=== PATIENT | male | born 1940 | race Caucasian/White ===

== ENCOUNTER → 2016-09-23 | Outpatient (CLI) | payer BC ==
[~2016-09-23] MED LIST: ATOR-24 PO; CALCTAB5 PO; CHOLCAP5 PO; DABI150C PO; LOSA50TA6 PO; MULT-190 PO; MULT-513 PO; TAMS0.4C59 PO; TPRSR/100 PO
[2016-09-23 10:34] LABS: CHOLESTEROL/HDL RATIO 2.6
== END | disposition home or self-care (01) ==
LOC: C.LAB1850 09:02
PROVIDERS: ATTEND Internal Medicine Cardiovascular Disease
DX: E78.00 Pure hypercholesterolemia, unspecified (principal); I10 Essential (primary) hypertension

== ENCOUNTER → 2016-10-03 | Outpatient (CLI) | payer BC | END | disposition home or self-care (01) | LOC: C.PATHSPEC 12:00 | PROVIDERS: ATTEND Ophthalmology | DX: L82.0 Inflamed seborrheic keratosis (principal) ==

== ENCOUNTER → 2017-03-08 | Outpatient (CLI) | payer BC ==
[2017-03-08 13:09] VITALS: BP 137/82; PULSE 88; TEMP 36.8; O2SAT 96
--- NOTE | 2017-03-08 15:43 | Radiation Oncology Follow-Up ---
Radiation Oncology Follow-Up Date of Visit Mar 08, 2017. Reason For Visit Annual follow-up Radiation Completion Date 08/01/13 Diagnosis (1) Prostate cancer Status: Resolved Onset Date: 02/13/2013 Location: right lobe of the prostate Histology Subtype: adenocarcinoma Stage: ll (A) Permanent Comment: Rising PSA to 4.13, clinical stage TIc Status post ultrasound-guided biopsies, biopsy stage TIIb Townsend grade 3+3 and 3+4 6 months of hormonal suppression Status post completion of radiation therapy utilizing IMRT/IGRT completed 2013 received 8040 cGy Last Edited By: Neetu Carreon on Mar 10, 2015 16:07 History of Present Illness Mr. Longoria is a 75-year-old gentleman who has been followed for a urinary symptoms. He had been on Rapaflo for over a year. His prior PSA from April 2012 was 3.07. The patient returned for routine followup with Dr. Person with a PSA from December 25, 2012. He was seen by Dr. Person on January 01, 2013. The PSA showed an increase to 4.13, up from 3.07 in the past April. His digital rectal exam showed no nodularity. However, because of the change in PSA, the recommendation was for a biopsy. The patient agreed and the biopsy was scheduled. On February 14, 2013, Dr. Person performed ultrasound-guided biopsies. A total of 14 samples were taken. The 2 biopsies of the left base revealed benign prostatic and seminal vesicle tissue with no neoplasm. Two biopsies from the left and right mid gland and left apex revealed benign prostatic tissues with no neoplasm seen. The single biopsies from the left anterior revealed benign prostatic tissue with no neoplasm. Biopsies from the right apex revealed benign prostatic tissue with focal chronic inflammation, but no neoplasm seen. Two biopsies from the right base were positive for adenocarcinoma intermediate grade, Godwin 3 + 4 involving 40% of each of the core samples. The Townsend 4 component was approximately 10%. The one biopsy from the right anterior was positive for an adenocarcinoma, Townsend grade of 3 + 3, involving 7%.. With no perineural invasion seen. Case [id number]. A bone scan was taken for staging purposes on March 01. This showed evidence of some degenerative changes in the cervical and thoracic spine but no evidence of metastatic bony disease. The patient discussed the findings of the biopsy with Dr. Person. They are scheduled to return to discuss his prostate cancer in March. We are asked to see this patient to discuss the potential treatment options. The patient ultimately made a decision to have external beam radiation therapy. He did receive hormonal suppression for 6 months. He received IMRT IGRT completed 08/01/2013. He received 8040 cGy Interim History He is been doing well over this past year from urinary standpoint. He gave an AUA score of 14. Last year he gave a score of 12. He completed expanded prostate cancer index composite for clinical practice and gave a score of 212 and urinary incontinence symptoms. He gave a score of one of 12 and urinary irritation symptoms. He gave a score of 0 of 12 bowel symptoms. He gave a score of 4 out of 12 and sexual symptoms. He gave a score of 3 of 12 and hormonal vitality symptoms. He continues on tamsulosin twice daily. He had a PSA 03/10/2016 that was 0.130. Allergies Coded Allergies: Penicillins (Verified Allergy, Unknown, SWELLING, 09/17/13) Home Medications Scheduled Atorvastatin (Lipitor), 40 MG PO DAILY Calcium (Caltrate), 600 MG PO DAILY Cholecalciferol (Vitamin D3), 5,000 UNITS PO DAILY Dabigatran Etexilate Mesylate (Pradaxa), 150 MG PO BID Losartan Potassium (Cozaar), 50 MG PO DAILY Metoprolol Succinate (Metoprolol Succinate ER), 150 MG PO DAILY Multivitamins/Minerals (Mvi With Minerals), 1 TAB PO DAILY Ocuvite Preservision (Ocuvite Preservision), 1 TAB PO BID Tamsulosin Hcl (Flomax), 0.4 MG PO BID Review of Systems Gastrointestinal: Symptoms: WNL Oral: Symptoms: No Problems Respiratory: Symptoms: SOB With Exertion Respiratory Comments: occasionally due to AFib Urinary: Symptoms: Nocturia, Frequency Comments: 3x a night at least Skin: Symptoms: No Problems Physical Exam Vital Signs Date Time Temp Pulse Resp B/P (MAP) Pulse Ox O2 Delivery O2 Flow Rate FiO2 03/08/17 13:09 36.8 88 20 137/82 96 Pain: Side: Bilateral Patient Pain Scale: 0 - 10 Initial Pain Intensity: 0.0 Fatigue: None General Appearance: no apparent distress Eyes: normal inspection, EOMI ENT: normal ENT inspection, hearing grossly normal Neck: no adenopathy, thyroid normal Respiratory/Chest: lungs clear, no respiratory distress, no accessory muscle use Cardiovascular: regular rate, rhythm, no gallop, no murmur Abdomen: non tender, soft Anal / Rectum: Normal sphincter tone. External hemorrhoids. Prostate is smooth without nodules. No rectal masses and no rectal bleeding. Extremities: no pedal edema Neurologic/Psychiatric: no motor/sensory deficits, alert, normal mood/affect Skin: warm/dry Laboratory Studies Test 03/08/17 13:29 Prostate Specific Antigen 0.094 ng/ml (0.000-4.000) Assessment & Plan Plan: A PSA was drawn today prior to examination. Continue regular follow-up with his primary care physician and Dr. Person. We discussed the tamsulosin on a twice a day basis. I stated he could try going to 1 per day to see if there is a difference in his urinary status. If he has increased symptoms he should return to twice a day. He'll take the pill after his largest meal. We discussed the side effects of tamsulosin including lightheadedness with standing as well as floppy iris syndrome. He does have some early cataracts. There is been no discussion of any surgery in the future currently. We asked him to return to our office in 1 year. He may call if he has knee questions or concerns in the interim. Total Time In Follow-Up I spent 20 minutes speaking to the patient and performing examination. I spent 15 minutes reviewing information in completing this note. Copy To Chucky Person MD, Urology; Tre Garcias Jr,D.O.
== END | disposition home or self-care (01) ==
LOC: C.ONC 13:03
PROVIDERS: ATTEND Physician Assistant Medical
DX: Z08 Encounter for follow-up examination after completed treatment for malignant neoplasm (principal); Z92.3 Personal history of irradiation; Z85.46 Personal history of malignant neoplasm of prostate

== ENCOUNTER → 2017-03-22 | Outpatient (CLI) | payer BC ==
[2017-03-22 09:52] LABS: CHOLESTEROL/HDL RATIO 3.1
== END | disposition home or self-care (01) ==
LOC: C.LAB1850 08:32
PROVIDERS: ATTEND Internal Medicine Cardiovascular Disease
DX: E78.00 Pure hypercholesterolemia, unspecified (principal)

== ENCOUNTER → 2017-08-18 | Outpatient (CLI) | payer BC ==
[2017-08-18 15:27] LABS: BLOOD UREA NITROGEN 17 mg/dl (7-18); CREATININE 1.09 mg/dl (0.60-1.40)
== END | disposition home or self-care (01) ==
LOC: C.LAB1850 13:58
PROVIDERS: ATTEND Urology
DX: C61 Malignant neoplasm of prostate (principal); R35.0 Frequency of micturition

== ENCOUNTER → 2017-09-18 | Outpatient (CLI) | payer BC | END | disposition home or self-care (01) | LOC: C.LAB1850 08:58 | PROVIDERS: ATTEND Internal Medicine Cardiovascular Disease | DX: E78.00 Pure hypercholesterolemia, unspecified (principal) ==

== ENCOUNTER → 2018-03-08 | Outpatient (CLI) | payer BC ==
[~2018-03-08] MED LIST changes: +AZIT-57 PO; -CALCTAB5 PO; +CALCTAB7 PO; -MULT-190 PO; +TAMS0.4C38 PO; -TAMS0.4C59 PO
[2018-03-08 13:21] VITALS: BP 134/85; PULSE 85; TEMP 36.6; O2SAT 96
--- NOTE | 2018-03-08 14:20 | Radiation Oncology Follow-Up ---
Radiation Oncology Follow-Up Date of Visit Mar 08, 2018. Reason For Visit annual follow up Radiation Completion Date 08/01/13 Diagnosis (1) Prostate cancer Status: Resolved Onset Date: 02/13/2013 Location: Right lobe of the prostate Histology Subtype: Adenocarcinoma Stage: ll (A) Permanent Comment: Rising PSA to 4.13, clinical stage TIc Status post ultrasound-guided biopsies, biopsy stage TIIb Crowell grade 3+3 and 3+4 6 months of hormonal suppression Status post completion of radiation therapy utilizing IMRT/IGRT completed 2013 received 8040 cGy Last Edited By: Neetu Carreon on Mar 10, 2015 16:07 History of Present Illness Mr. Longoria has been followed for a urinary symptoms. He had been on Rapaflo for over a year. His prior PSA from April 2012 was 3.07. The patient returned for routine followup with Dr. Person with a PSA from December 25, 2012. He was seen by Dr. Person on January 01, 2013. The PSA showed an increase to 4.13, up from 3.07 in the past April. His digital rectal exam showed no nodularity. However, because of the change in PSA, the recommendation was for a biopsy. The patient agreed and the biopsy was scheduled. On February 14, 2013, Dr. Person performed ultrasound-guided biopsies. A total of 14 samples were taken. The 2 biopsies of the left base revealed benign prostatic and seminal vesicle tissue with no neoplasm. Two biopsies from the left and right mid gland and left apex revealed benign prostatic tissues with no neoplasm seen. The single biopsies from the left anterior revealed benign prostatic tissue with no neoplasm. Biopsies from the right apex revealed benign prostatic tissue with focal chronic inflammation, but no neoplasm seen. Two biopsies from the right base were positive for adenocarcinoma intermediate grade, Crowell 3 + 4 involving 40% of each of the core samples. The Crowell 4 component was approximately 10%. The one biopsy from the right anterior was positive for an adenocarcinoma, Godwin grade of 3 + 3, involving 7%.. With no perineural invasion seen. Case [id number]. A bone scan was taken for staging purposes on March 01. This showed evidence of some degenerative changes in the cervical and thoracic spine but no evidence of metastatic bony disease. The patient discussed the findings of the biopsy with Dr. Person. They are scheduled to return to discuss his prostate cancer in March. We are asked to see this patient to discuss the potential treatment options. The patient ultimately made a decision to have external beam radiation therapy. He did receive hormonal suppression for 6 months. He received IMRT IGRT completed 08/01/2013. He received 8040 cGy Interim History Has been doing well over this past year. He feels his urinary status is stable. He gave an AUA score of 14. This is unchanged from last year. He completed and expanded prostate cancer index composite for clinical practice and gave a score of 2 of 12 and urinary incontinence symptoms. He gave a score of 2 of 12 and urinary irritation symptoms. He gives score 3 of 12 and bowel symptoms. He gave a score of 4 of 12 in sexual symptoms. He gives score of 5 of 12 and hormonal vitality symptoms. His total was 14 of 60. He had a PSA August 18, 2017 and that was 0.078. Allergies Coded Allergies: Penicillins (Verified Allergy, Unknown, SWELLING, 12/13/17) Home Medications Scheduled Atorvastatin (Lipitor), 40 MG PO DAILY Calcium Carbonate-Vitamin D W/ (Caltrate 600 Plus), 1 TAB PO DAILY Cholecalciferol (Vitamin D3), 5,000 UNITS PO DAILY Dabigatran Etexilate Mesylate (Pradaxa), 150 MG PO BID Losartan Potassium (Cozaar), 50 MG PO DAILY Metoprolol Succinate (Metoprolol Succinate ER), 150 MG PO DAILY Multivitamins/Minerals (Mvi With Minerals), 1 TAB PO DAILY Tamsulosin Hcl (Flomax), 0.4 MG PO BID Review of Systems Gastrointestinal: Symptoms: WNL Oral: Symptoms: No Problems Respiratory: Symptoms: SOB With Exertion Urinary: Symptoms: WNL, Nocturia Skin: Symptoms: No Problems Physical Exam Vital Signs Date Time Temp Pulse Resp B/P (MAP) Pulse Ox O2 Delivery O2 Flow Rate FiO2 03/08/18 13:21 36.6 85 20 134/85 96 Fatigue: None General Appearance: no apparent distress Eyes: normal inspection, EOMI ENT: normal ENT inspection, hearing grossly normal Neck: no adenopathy, thyroid normal Respiratory/Chest: lungs clear, no respiratory distress, no accessory muscle use Cardiovascular: regular rate, rhythm, no gallop, no murmur Abdomen: non tender, soft, no organomegaly Anal / Rectum: External hemorrhoids. Normal sphincter tone. No prostatic nodules. No rectal masses no rectal bleeding. Extremities: no pedal edema Neurologic/Psychiatric: no motor/sensory deficits, alert, normal mood/affect Skin: warm/dry Pain Management Patient Reports Pain: No Pain Location: None Patient Preferred Pain Scale: 0 - 10 Initial Pain Intensity: 0.0 Pain Management Plan He denies pain therefore requires no pain management. Laboratory Laboratory Results: were reviewed, pending Laboratory Comments: Reviewed in the interim history. Pathology Pathology Results: were reviewed, and pertinent findings noted in HPI Imaging Imaging Studies: not applicable Assessment & Plan Plan: A PSA was drawn today prior to examination. He will be notified as to results. He continues follow-up with Dr. Person. He has been taking tamsulosin twice daily on a regular basis. We discussed decreasing the dose to once a day. If he does symptoms he will go back to twice a day. He will be seeing Dr. Person in 6 months. We asked him to return to our office in 1 year. He may call if he has any questions or concerns in the interim. Total Time In Follow-Up I spent 20 minutes speaking to the patient in performing examination. I spent 15 minutes reviewing information and completing this note. [place] Copy To Chucky Person MD, Urology; Tre Garcias Jr,D.O.
== END | disposition home or self-care (01) ==
LOC: C.ONC 13:10
PROVIDERS: ATTEND Physician Assistant Medical
DX: Z08 Encounter for follow-up examination after completed treatment for malignant neoplasm (principal); Z92.3 Personal history of irradiation; Z85.46 Personal history of malignant neoplasm of prostate

== ENCOUNTER 2021-10-18 09:35 | Inpatient (IN) ==
[2021-10-18 10:08] LABS: Basophils # (auto) 0.01 K/uL (0-0.2); Basophils % (auto) 0.1 %; Eosinophils # (auto) 0.03 K/uL (0-0.5); Eosinophils % (auto) 0.4 %; Hematocrit (blood only) 47.3 % (42-52); Hemoglobin 15.7 g/dL (14.0-18.0); Immature Granulocytes # (auto) 0.02 K/uL (0.00-0.02); Immature Granulocytes % (auto) 0.3 %; Lymphocytes # (auto) 0.47 K/uL (1.2-3.4); Lymphocytes % (auto) 6.4 %; Mean Corpuscular Hemoglobin 31.2 pg (25-34); Mean Corpuscular Hgb Conc 33.2 g/dL (32-36); Mean Corpuscular Volume 93.8 fL (80-100); Mean Platelet Volume 10.3 fL (7.4-10.4); Monocytes # (auto) 0.51 K/uL (0.11-0.59); Neutrophils # (auto) 6.28 K/uL (1.4-6.5); Neutrophils % (auto) 85.8 %; Platelet Count 132 K/uL (130-400); RDW Coefficient of Variation 13.2 % (11.5-14.5); RDW Standard Deviation 45.5 fL (36.4-46.3); Red Blood Count 5.04 M/uL (4.7-6.1); White Blood Count 7.32 K/uL (4.8-10.8)
[2021-10-18] MEDS ORDERED: methylPREDNISolone 125 MG/2 ML VIAL IV STA (10:08)
[2021-10-18] MEDS ORDERED: ALBUT/IPRATROP 3MG/0.5MG NEB 3 ML VIAL NEB STA ×2 (10:08→11:12)
--- NOTE | 2021-10-18 10:10 | Emergency Department Note ---
Impression & Plan Hypoxia ADMIT ED Provider Note HPI: The patient is a 81-year-old gentleman with history of chronic diastolic heart failure, atrial fibrillation, presents the emergency department with a chief complaint of shortness of breath for the past 2 to 3 days. Patient states he is becoming more short of breath on exertion he has had a cough and some wheezing during this time. Patient denies any fevers, denies any chest pain, on arrival to the ED he is on nasal cannula oxygen as he reportedly was hypoxic in the field at 86%, he was noted to be hypoxic here in the ED at 86% on room air and was placed on 2 L nasal cannula oxygen with good improvement. On my initial assessment the patient does exhibit some moderate expiratory wheezing but he is otherwise in no acute distress. ROS: -Pulmonary: Shortness of breath *10 point review systems was conducted and is otherwise negative unless stated above *Outpatient medications and allergy history reviewed PE: General: Alert, NAD HEENT: Normocephalic, atraumatic Eyes: Extraocular eye movement is intact, no scleral erythema Pulmonary: Moderate expiratory wheezing appreciated bilaterally and throughout without crackles Cardio: Regular rate and irregular rhythm GI: Abdomen is soft, nontender : No suprapubic tenderness MSK: No evidence of trauma or malformation of the extremities, no edema Skin: No evidence of rash Neuro: Alert, no focal deficits Psychiatric: Cooperative media monitor: - An order was placed for continuous cardiac monitoring - Patient was noted to be in fibrillation rhythm with rate of 90 EKG: Rate: 91 Rhythm: Atrial fibrillation Intervals: Within normal limits ST changes: No ST elevation Time: 0942 Medical Decision Making: Patient presented to the emergency department with a chief complaint of shortness of breath, he does exhibit some moderate expiratory wheezing on arrival, admits to a distant smoking history but states he does not have a formal diagnosis of COPD. IV was established, lab work obtained, patient does have evidence of mild hypercarbia with a PCO2 of 63, mild acidosis, chest x-ray does not show any pneumonia, patient was given DuoNeb breathing treatment as well as IV Solu-Medrol. On my reassessment he states he is feeling mild improvement. Troponin is negative, EKG shows rate controlled atrial fibrillation, patient denies any chest pain. At this time given the patient's new oxygen requirement in conjunction with his ongoing but improved wheezing, I did discuss admission with the patient which she is in agreement. JENNIFER-19 testing is negative, [facility] hospitalist service is consulted for admission and the patient was admitted in improved condition. * CRITICAL CARE TIME: 35 minutes -Stabilization of hypoxia with oxygen saturations less than 90% on room air requiring supplemental oxygen for improvement, time spent at the bedside, interpretation of diagnostic studies, arrangement of admission Diagnosis: 1. Acute respiratory failure with hypercarbia and hypoxia 2. COPD exacerbation, moderate 3. Cough, dyspnea Disposition: Admission Advised outpatient follow up: - Return to the ED with any new or worsening symptoms - PCP in 2-3 Days Santiago Romero DO Emergency Medicine Past Med/Surg History Medical History (Updated 10/18/21 @ 11:36 by Ebenezer Diaz MD) Atrial fibrillation follows with Dr. Longoria BPH (benign prostatic hyperplasia) History of colon polyps Hyperlipidemia Hypertension On anticoagulant therapy Osteoarthritis Prostate cancer 2013--radiation Rectal bleeding Surgical History History of colonoscopy History of prostate biopsy malignant History of wisdom tooth extraction Family History Aunt Family history of diabetes mellitus Other No family history of adverse response to anesthesia Social History (Updated 10/18/21 @ 11:22 by Santiago Romero DO) Smoking Status: Former smoker Age Started Using Tobacco: 17; Age Quit Using Tobacco: 27; Years Smoked: 10; Number of Years Since Quit: 52; Second Hand Exposure: No; Hx Alcohol Use: Yes Alcohol type: beer Hx Substance Use: No Preferred Language: Hebrew Communication Ability: Effective Marketing Data Specialist Required: No Beliefs That Will Affect Care: None Current Living Situation: Spouse Feels Safe at Home: Yes Assistive Devices: Glasses Allergies Allergies Allergy/AdvReac Type Severity Reaction Status Date / Time Penicillins Allergy Mild SWELLING Verified 06/07/21 10:16 Home Meds Home Medications Medication Instructions Recorded Confirmed calcium carbonate 600 mg-vitamin 1 tab PO QAM 05/13/18 10/18/21 D3 20 mcg (800 unit) chewable tablet (Caltrate 600 plus D) multivitamin 1 tab PO DAILY 03/07/19 10/18/21 metoprolol succinate 100 mg 150 mg PO BID 10/18/21 10/18/21 tablet,extended release 24 hr Previous Rx's Medication Instructions Recorded atorvastatin 40 mg tablet 40 mg PO HS #90 tab 10/21/20 dabigatran etexilate 150 mg capsule 150 mg PO BID #180 cap 10/21/20 losartan 50 mg tablet 50 mg PO QAM #90 tab 10/21/20 tamsulosin 0.4 mg capsule 0.4 mg PO QPM #30 cap 11/30/20 furosemide 40 mg tablet 40 mg PO DAILY PRN #90 tab 12/31/20 Results & Data (ED) Vital Signs Vital Signs - 24 hr 10/18/21 09:42 10/18/21 09:55 10/18/21 10:00 Temperature 36.8 C Temperature Source Oral Pulse Rate 100 H 89 89 Pulse Rate from SpO2 Sensor 91 H Pulse Rhythm Regular Pulse Strength Normal Respiratory Rate 27 H 22 19 Blood Pressure 153/85 H 159/90 H 153/85 H Blood Pressure Mean 107 113 107 Blood Pressure Position Lying Pulse Oximetry 94 91 78 L Oxygen Delivery Method Nasal Cannula Nasal Cannula Nasal Cannula Oxygen Flow Rate 2 2 2 Sepsis Recent Fever Within 48 Hours No Sepsis New/Unexplained Change in Mental Status N/A Sepsis Action Taken by Nursing No Action Required 10/18/21 10:09 10/18/21 10:15 10/18/21 10:30 Temperature Temperature Source Pulse Rate 86 91 H Pulse Rate from SpO2 Sensor 92 H 98 H Pulse Rhythm Pulse Strength Respiratory Rate 27 H 21 12 Blood Pressure 149/92 H 129/77 Blood Pressure Mean 111 94 Blood Pressure Position Pulse Oximetry 94 86 L 83 L Oxygen Delivery Method Nasal Cannula Oxygen Flow Rate 24 Sepsis Recent Fever Within 48 Hours Sepsis New/Unexplained Change in Mental Status Sepsis Action Taken by Nursing 10/18/21 10:46 10/18/21 11:00 10/18/21 11:13 Temperature Temperature Source Pulse Rate 86 96 H Pulse Rate from SpO2 Sensor 89 92 H Pulse Rhythm Pulse Strength Respiratory Rate 22 26 H 26 H Blood Pressure 124/83 156/86 H Blood Pressure Mean 96 109 Blood Pressure Position Pulse Oximetry 86 L 98 92 Oxygen Delivery Method Nasal Cannula Nasal Cannula Oxygen Flow Rate 2 2 Sepsis Recent Fever Within 48 Hours Sepsis New/Unexplained Change in Mental Status Sepsis Action Taken by Nursing 10/18/21 11:15 10/18/21 11:30 Temperature Temperature Source Pulse Rate 80 88 Pulse Rate from SpO2 Sensor 86 77 Pulse Rhythm Pulse Strength Respiratory Rate Blood Pressure 144/88 H 152/107 H Blood Pressure Mean 106 122 Blood Pressure Position Pulse Oximetry 95 83 L Oxygen Delivery Method Nasal Cannula Oxygen Flow Rate 2 Sepsis Recent Fever Within 48 Hours Sepsis New/Unexplained Change in Mental Status Sepsis Action Taken by Nursing Laboratory Data Result diagrams: 10/18/21 09:50 10/18/21 09:50 Lab Results 10/18/21 10/18/21 10/18/21 Range/Units 09:50 09:50 09:50 WBC 7.32 (4.8-10.8) K/uL RBC 5.04 (4.7-6.1) M/uL Hgb 15.7 (14.0-18.0) g/dL Hct 47.3 (42-52) % MCV 93.8 (80-100) fL MCH 31.2 (25-34) pg MCHC 33.2 (32-36) g/dL RDW Std Deviation 45.5 (36.4-46.3) fL RDW Coeff of Morgan 13.2 (11.5-14.5) % Plt Count 132 (130-400) K/uL MPV 10.3 (7.4-10.4) fL Immature Gran % (Auto) 0.3 % Neut % (Auto) 85.8 % Lymph % (Auto) 6.4 % [place] % (Auto) 7.0 % Eos % (Auto) 0.4 % Baso % (Auto) 0.1 % Neut # (Auto) 6.28 (1.4-6.5) K/uL Lymph # (Auto) 0.47 L (1.2-3.4) K/uL [place] # (Auto) 0.51 (0.11-0.59) K/uL Eos # (Auto) 0.03 (0-0.5) K/uL Baso # (Auto) 0.01 (0-0.2) K/uL Immature Gran # (Auto) 0.02 (0.00-0.02) K/uL PT Cancelled INR Cancelled APTT Cancelled PTT Ratio Cancelled VBG pH (7.36-7.41) VBG pCO2 (38-50) mmHg VBG pO2 mmHg VBG HCO3 mmol/L VBG O2 Saturation % VBG Base Excess mEq/L Barometric Pressure mm/Hg Sodium 138 (136-145) mmol/L Potassium 5.1 (3.5-5.1) mmol/L Chloride 99 (98-107) mmol/L Carbon Dioxide 34 H (21-32) mmol/L Anion Gap 5 (3-11) BUN 14 (6-23) mg/dl Creatinine 0.98 (0.6-1.4) mg/dl Est Cr Clr Drug Dosing 66.3 ml/min Est GFR ( Amer) 84.6 ml/min Est GFR (Non-Af Amer) 73.0 ml/min BUN/Creatinine Ratio 14.3 (10-20) Glucose 150 H (70-99(Fasting)) mg/dl Calcium 9.1 (8.5-10.1) mg/dl Magnesium 1.8 (1.7-2.4) mg/dl Total Bilirubin 1.1 H (0.2-1.0) mg/dl AST 31 (13-39) U/L ALT 18 (7-52) U/L Alkaline Phosphatase 71 (34-104) U/L Troponin I < 0.03 (0-0.04) ng/ml Total Protein 6.6 (6.0-8.3) gm/dl Albumin 4.0 (3.4-5.0) gm/dl Globulin 2.6 (2.5-4.0) gm/dl Albumin/Globulin Ratio 1.5 (0.9-2) SARS-CoV-2 (PCR) (Negative) Influenza Type A (PCR) (Neg) Influenza Type B (PCR) (Neg) RSV (RT-PCR) (Neg) 10/18/21 10/18/21 10/18/21 Range/Units 10:18 10:25 10:58 WBC (4.8-10.8) K/uL RBC (4.7-6.1) M/uL Hgb (14.0-18.0) g/dL Hct (42-52) % MCV (80-100) fL MCH (25-34) pg MCHC (32-36) g/dL RDW Std Deviation (36.4-46.3) fL RDW Coeff of Morgan (11.5-14.5) % Plt Count (130-400) K/uL MPV (7.4-10.4) fL Immature Gran % (Auto) % Neut % (Auto) % Lymph % (Auto) % [place] % (Auto) % Eos % (Auto) % Baso % (Auto) % Neut # (Auto) (1.4-6.5) K/uL Lymph # (Auto) (1.2-3.4) K/uL [place] # (Auto) (0.11-0.59) K/uL Eos # (Auto) (0-0.5) K/uL Baso # (Auto) (0-0.2) K/uL Immature Gran # (Auto) (0.00-0.02) K/uL PT 13.1 H INR 1.2 H APTT 41.0 H PTT Ratio 1.5 VBG pH 7.34 L (7.36-7.41) VBG pCO2 63 H (38-50) mmHg VBG pO2 32 mmHg VBG HCO3 33 mmol/L VBG O2 Saturation < 60.0 % VBG Base Excess 4.7 mEq/L Barometric Pressure 731.5 mm/Hg Sodium (136-145) mmol/L Potassium (3.5-5.1) mmol/L Chloride (98-107) mmol/L Carbon Dioxide (21-32) mmol/L Anion Gap (3-11) BUN (6-23) mg/dl Creatinine (0.6-1.4) mg/dl Est Cr Clr Drug Dosing ml/min Est GFR ( Amer) ml/min Est GFR (Non-Af Amer) ml/min BUN/Creatinine Ratio (10-20) Glucose (70-99(Fasting)) mg/dl Calcium (8.5-10.1) mg/dl Magnesium (1.7-2.4) mg/dl Total Bilirubin (0.2-1.0) mg/dl AST (13-39) U/L ALT (7-52) U/L Alkaline Phosphatase (34-104) U/L Troponin I (0-0.04) ng/ml Total Protein (6.0-8.3) gm/dl Albumin (3.4-5.0) gm/dl Globulin (2.5-4.0) gm/dl Albumin/Globulin Ratio (0.9-2) SARS-CoV-2 (PCR) NEGATIVE (Negative) Influenza Type A (PCR) Negative (Neg) Influenza Type B (PCR) Negative (Neg) RSV (RT-PCR) Negative (Neg) Administered Medications Discontinued Medications Albuterol (Albut/Ipratrop 3mg/0.5mg Neb 3 Ml Vial) 3 ml NEB NOW STA; Protocol Stop: 10/18/21 10:09 Last Admin: 10/18/21 10:17 Dose: 3 ml Documented by: [id number] Albuterol (Albut/Ipratrop 3mg/0.5mg Neb 3 Ml Vial) 3 ml NEB NOW STA; Protocol Stop: 10/18/21 11:13 Last Admin: 10/18/21 11:22 Dose: 3 ml Documented by: [id number] Methylprednisolone (Methylprednisolone 125 Mg/2 Ml Vial) 125 mg IV NOW STA Stop: 10/18/21 10:09 Last Admin: 10/18/21 10:18 Dose: 125 mg Documented by: [id number] Imaging Data Radiologist's Impression: Chest X-Ray 10/18/21 09:57 XR chest 1V portable CLINICAL HISTORY: Shortness of breath. COMPARISON STUDY: Chest radiograph May 13, 2018. FINDINGS: Lung volumes are normal. Lungs are clear. There is no pneumothorax or pleural effusion. Moderate cardiomegaly is unchanged. Mediastinal contours are normal. There is no evidence for pulmonary edema. IMPRESSION: No acute cardiopulmonary findings. Cardiomegaly. ACT 112: Negative or not required by law. Electronically signed by: Navin Chen M.D. 10/18/2021 10:19 AM Discharge Plan Visit Data Chief Complaint: Shortness of Breath/Dyspnea ED Provider: Santiago Romero Discharge Problem: Hypoxia Forms Stand Alone Forms: [facility] Prescriptions Prescriptions: No Action furosemide 40 mg tablet 40 mg PO DAILY PRN (Reason: weight gain) Qty: 90 RF: 3 tamsulosin 0.4 mg capsule 0.4 mg PO QPM Qty: 30 RF: 11 multivitamin tablet 1 tab PO DAILY RF: 0 losartan 50 mg tablet 50 mg PO QAM Qty: 90 RF: 3 dabigatran etexilate 150 mg capsule 150 mg PO BID Qty: 180 RF: 3 atorvastatin 40 mg tablet 40 mg PO HS Qty: 90 RF: 3 Caltrate 600 plus D 600 mg (1,500 mg)-800 unit Tablet,Chewable 1 tab PO QAM RF: 0 metoprolol succinate 100 mg tablet extended release 24 hr 150 mg PO BID RF: 0 Referrals Referrals: Tre Garcias Jr, DO [Primary Care Provider] -
--- NOTE | 2021-10-18 10:20 | XRay Report ---
XR chest 1V portable CLINICAL HISTORY: Shortness of breath. COMPARISON STUDY: Chest radiograph May 13, 2018. FINDINGS: Lung volumes are normal. Lungs are clear. There is no pneumothorax or pleural effusion. Mod erate cardiomegaly is unchanged. Mediastinal contours are normal. There is no evidence for pulmonary edema. IMPRESSION: No acute cardiopulmonary findings. Cardiomegaly. ACT 112: Negative or not required by law. Electronically signed by: Navin Chen M.D. 10/18/2021 10:19 AM
[2021-10-18 10:36] LABS: Troponin I < 0.03 ng/ml (0-0.04)
[2021-10-18 10:42] LABS: Alanine Aminotransferase 18 U/L (7-52); Albumin Globulin Ratio 1.5 (0.9-2); Alkaline Phosphatase 71 U/L (34-104); Anion Gap 5 (3-11); Aspartate Aminotransferase 31 U/L (13-39); BUN Creatinine Ratio 14.3 (10-20); Bilirubin,Total 1.1 mg/dl (0.2-1.0); Blood Urea Nitrogen 14 mg/dl (6-23); Calcium 9.1 mg/dl (8.5-10.1); Carbon Dioxide 34 mmol/L (21-32); Chloride 99 mmol/L (98-107); Creatinine Clr Calc Pharmacy 66.3 ml/min; Est GFR (African American) 84.6 ml/min; Globulin 2.6 gm/dl (2.5-4.0); Glucose 150 mg/dl (70-99(Fasting)); Magnesium 1.8 mg/dl (1.7-2.4); Potassium 5.1 mmol/L (3.5-5.1); Sodium 138 mmol/L (136-145); Total Protein 6.6 gm/dl (6.0-8.3)
[2021-10-18 10:44] LABS: Base Excess VBG 4.7 mEq/L; HCO3 VBG 33 mmol/L; Oxygen Saturation VBG < 60.0 %; PCO2 VBG 63 mmHg (38-50); PO2 VBG 32 mmHg; pH VBG 7.34 (7.36-7.41)
--- NOTE | 2021-10-18 11:29 | History & Physical Report ---
Date of Service October 18, 2021 Assessment & Plan (1) Acute respiratory failure with hypoxia: Plan: Suspect combination of hypervolemic state and COPD exacerbation Aim O2 sats > 90% (2) COPD exacerbation: Plan: No history of this but has what sounds like chronic bronchitis therefore may just be undiagnosed He also reports mild immediate but not long lasting improvement with duonebs Significant wheezing on exam Possible recent exacerbation with post nasal drip Azithromycin 500mg PO daily for 3 days Solu-Medrol 125mg IV given in ER, continue 40mg BID Duonebs Q4HWA Fluticasone nasal spray for post nasal drip (3) Acute on chronic diastolic heart failure: Plan: Suspect his dry weight is much lower than he thinks as appears to be significantly hypervolemic and has slow progression of shortness of breath on exertion for many months. Lasix 40mg IV now then daily Repeat BMP in AM Repeat TTE - LVEF 55-60% in October 2020 (4) Permanent atrial fibrillation: Plan: Suspect mild rate increase in ER due to albuterol and missing his morning metoprolol which we will give now Monitor on telemetry Continue metoprolol succinate 150mg PO BID Continue dabigatran 150mg PO BID (5) Enlarged prostate with lower urinary tract symptoms (LUTS): Plan: Continue tamsulosin 0.4mg PO daily (6) Hypercholesterolemia: Plan: Continue atorvastatin 40mg PO daily Plan: VTE Prophylaxis - Pradaxa Diet - low Na, heart healthy, fluid restrict 1500ml Disposition - admit to med/tele Admission and Anticipated Discharge Date Admission Date: October 18, 2021 History of Present Illness Chief Complaint: Shortness of breath Primary Care Provider: Tre Garcias Jr, Brendan Longoria is a 81 year old male who presents to the ER with shortness of breath for the last 3 days getting progressively worse. He does not wear oxygen at home. Called EMS this morning due to worsening shortness of breath. He has been using his 's nebulizers with mild improvement. He has associated wheezing but no chest pain. He also notes more chronic shortness of breath on exertion progressively getting worse over the last year. For years he has also had to clear his throat in the evenings and associated post nasal drip. He reports starting on Lasix for the last 6 months (initially prescription in October last year). He reports taking this almost daily (misses doses when he travelling) although notably as not picked up a prescription since December 2020. He does not measure his home weight but also does not feel he has recently gained weight. Dry weight per cardiology note 212lb, currently 227lb. Leg swelling at baseline. He notably has chronic atrial fibrillation, anticoagulated with Pradaxa and rate controlled in the emergency room on his usual metoprolol succinate. In the ER he was hypoxic down to 86% on room air which improved to 92% on 2LPM O2. He was given Solu-medrol 125mg IV and Duoneb 3ml x2. He was referred to medicine for admission and ongoing management of COPD exacerbation. Allergies Allergy/AdvReac Type Severity Reaction Status Date / Time Penicillins Allergy Mild SWELLING Verified 06/07/21 10:16 Home Medications Medication Instructions Recorded Confirmed Type calcium carbonate 600 mg-vitamin 1 tab PO QAM 05/13/18 10/18/21 History D3 20 mcg (800 unit) chewable tablet (Caltrate 600 plus D) multivitamin 1 tab PO DAILY 03/07/19 10/18/21 History atorvastatin 40 mg tablet 40 mg PO HS #90 tab 10/21/20 10/18/21 Rx dabigatran etexilate 150 mg capsule 150 mg PO BID #180 cap 10/21/20 10/18/21 Rx losartan 50 mg tablet 50 mg PO QAM #90 tab 10/21/20 10/18/21 Rx tamsulosin 0.4 mg capsule 0.4 mg PO QPM #30 cap 11/30/20 10/18/21 Rx furosemide 40 mg tablet 40 mg PO DAILY PRN #90 tab 12/31/20 10/18/21 Rx metoprolol succinate 100 mg 150 mg PO BID 10/18/21 10/18/21 History tablet,extended release 24 hr Past Med/Surg History Medical History (Updated 10/18/21 @ 12:18 by Ebenezer Diaz MD) Atrial fibrillation follows with Dr. Longoria BPH (benign prostatic hyperplasia) History of colon polyps Hyperlipidemia Hypertension On anticoagulant therapy Osteoarthritis Prostate cancer 2013--radiation Rectal bleeding Surgical History History of colonoscopy History of prostate biopsy malignant History of wisdom tooth extraction Family History Aunt Family history of diabetes mellitus Other No family history of adverse response to anesthesia Social History (Updated 10/18/21 @ 11:22 by Santiago Romero DO) Smoking Status: Former smoker Age Started Using Tobacco: 17; Age Quit Using Tobacco: 27; Years Smoked: 10; Number of Years Since Quit: 52; Second Hand Exposure: No; Hx Alcohol Use: Yes Alcohol type: beer Hx Substance Use: No Preferred Language: Arabic Communication Ability: Effective Booking Clerk Required: No Beliefs That Will Affect Care: None Current Living Situation: Spouse Feels Safe at Home: Yes Assistive Devices: Glasses Review of Systems Review of Systems: All systems reviewed & are unremarkable except as noted in HPI & below Physical Exam Constitutional: WD/WN, vitals as above no acute distress Eyes: PERRL, conjunctivae normal, anicteric sclerae Neck: trachea midline, no thyromegaly Respiratory: + respiratory distress, + retractions, + uses accessory muscles and able to speak in complete sentences Auscultation: + wheezes (posteriorly on expiration); no diminished lung sounds, no crackles, no rales and no rhonchi Cardiovascular: Rate/Rhythm: + tachycardic and + irregularly irregular Heart Sounds: no murmur Vessels: + JVD Extremities: normal capillary refill and + pedal edema (2+ bilaterally equal); no calf tenderness Gastrointestinal (Abdomen): Inspection/Auscultation: normal bowel sounds Percussion/Palpation: abdomen soft; abdomen nontender, no guarding and abdomen not rigid Musculoskeletal: no cyanosis or clubbing, extremities motor strength 5/5 Skin: no rashes, warm and dry Neurologic: moves all extremities and awake; not confused Psychiatric: A+Ox3, euthymic affect Results & Data Results & Data ([facility]) Vital Signs (Past 12 Hours) Vital Signs Temp Pulse Resp BP Pulse Ox 10/18/21 11:13 26 H 92 10/18/21 10:46 86 22 124/83 86 L 10/18/21 10:30 91 H 12 129/77 83 L 10/18/21 10:15 86 21 149/92 H 86 L 10/18/21 10:09 27 H 94 10/18/21 10:00 89 19 153/85 H 78 L 10/18/21 09:55 89 22 159/90 H 91 10/18/21 09:42 36.8 C 100 H 27 H 153/85 H 94 Laboratory Results Abnormal lab results 10/18/21 10/18/21 10/18/21 Range/Units 09:50 09:50 10:25 Lymph # (Auto) 0.47 L (1.2-3.4) K/uL VBG pH 7.34 L (7.36-7.41) VBG pCO2 63 H (38-50) mmHg Carbon Dioxide 34 H (21-32) mmol/L Glucose 150 H (70-99(Fasting)) mg/dl Total Bilirubin 1.1 H (0.2-1.0) mg/dl Diagnostic Findings XR chest 1V portable CLINICAL HISTORY: Shortness of breath. COMPARISON STUDY: Chest radiograph May 13, 2018. FINDINGS: Lung volumes are normal. Lungs are clear. There is no pneumothorax or pleural effusion. Moderate cardiomegaly is unchanged. Mediastinal contours are normal. There is no evidence for pulmonary edema. IMPRESSION: No acute cardiopulmonary findings. Cardiomegaly. Medications Administered ER Medications Given: Solu-Medrol 125mg IV Duoneb 3ml x2 ECG Indication: SOB/dyspnea Rate (beats per minute): 91 Rhythm: atrial fibrillation Findings: no ST depression (computer over read due to wandering baseline noted) Comparison ECG Date: from (December 13, 2017) Change: no significant change Code Status & VTE Plan Code Status All treatment outside of a cardiac arrest VTE Prophylaxis Plan VTE Prophylaxis will be ordered: Yes PG Care Time/CCT Total # of Minutes Spent Total Time Spent with Patient: Total time spent is greater than 50% in coordination of care (as documented) at patient's floor/unit and/or counseling patient: Coding Level of Care Code 46200 Initial Inpt Care Lvl 3 Diagnoses COPD exacerbation J44.1 Acute on chronic diastolic heart failure I50.33 Acute respiratory failure with hypoxia J96.01 Permanent atrial fibrillation I48.21 Enlarged prostate with lower urinary tract symptoms (LUTS) N40.1 Hypercholesterolemia E78.00
[2021-10-18 11:42] LABS: INR 1.2 (0.9-1.1); Partial Thromboplastin Ratio 1.5; Prothrombin Time 13.1 Seconds (9.0-12.0)
[2021-10-18 11:43] LABS: Influenza A virus by PCR Negative (Neg); Influenza B virus by PCR Negative (Neg); RSV by PCR Negative (Neg); SARS CoV2 RNA(COVID-19) InHosp NEGATIVE (Negative)
[2021-10-18] MEDS ORDERED: FUROSEMIDE 40 MG/4 ML VIAL IV STA (11:50)
[2021-10-18] MEDS ORDERED: LOSARTAN POTASSIUM 50 MG TAB PO STA (11:55)
[2021-10-18] MEDS ORDERED: METOPROLOL SUCC 50MG EXT REL TAB PO STA (12:04)
[2021-10-18] MEDS ORDERED: AZITHROMYCIN 250 MG TAB PO STA (12:08)
[2021-10-18] MEDS ORDERED: DABIGATRAN ETEXILATE 75 MG CAP PO STA (12:09)
[2021-10-18] MEDS ORDERED: ACETAMINOPHEN 325 MG TAB PO PRN (14:35)
[2021-10-18] MEDS: ALBUT/IPRATROP 3MG/0.5MG NEB 3 ML VIAL NEB SCH ×3 (15:55→23:09)
--- NOTE | 2021-10-18 19:29 | XCELERA ---
[id number]
[2021-10-18] MEDS: ATORVASTATIN 40 MG TAB PO SCH (20:32)
[2021-10-18] MEDS: TAMSULOSIN HCL 0.4 MG CAP PO SCH (20:32)
[2021-10-18] MEDS: DABIGATRAN ETEXILATE 75 MG CAP PO SCH (20:32)
[2021-10-18] MEDS: FLUTICASONE PROPIONATE NA SPR 16 GM BTL SCH (20:37)
[2021-10-18] MEDS: methylPREDNISolone 40 MG in SYRINGE 0 ML IV SCH (20:37)
[2021-10-18] MEDS: METOPROLOL SUCC 50MG EXT REL TAB PO SCH (20:45)
[2021-10-19] MEDS: ALBUT/IPRATROP 3MG/0.5MG NEB 3 ML VIAL NEB SCH ×3 (02:28→11:30)
--- NOTE | 2021-10-19 06:59 | Electrocardiogram Report ---
Test Reason : Blood Pressure : / mmHG Vent. Rate : 091 BPM Atrial Rate : 078 BPM P-R Int : 000 ms QRS Dur : 086 ms QT Int : 360 ms P-R-T Axes : 000 070 012 degrees QTc Int : 442 ms Poor data quality, interpretation may be adversely affected Atrial fibrillation Anterior infarct , age undetermined Abnormal ECG When compared with ECG of 13-MAY-2018 12:18, Anterior infarct is now Present T wave amplitude has decreased in Anterior leads Confirmed by Jlues Malone ([id number]) on 10/19/2021 6:59:14 AM Referred By: REFERRED SELF Confirmed By:Jules Malone
[2021-10-19 07:03] LABS: Basophils # (auto) 0.01 K/uL (0-0.2); Basophils % (auto) 0.1 %; Hematocrit (blood only) 45.2 % (42-52); Hemoglobin 15.3 g/dL (14.0-18.0); Immature Granulocytes # (auto) 0.02 K/uL (0.00-0.02); Immature Granulocytes % (auto) 0.2 %; Lymphocytes % (auto) 3.8 %; Mean Corpuscular Hemoglobin 31.7 pg (25-34); Mean Corpuscular Hgb Conc 33.8 g/dL (32-36); Mean Corpuscular Volume 93.6 fL (80-100); Mean Platelet Volume 10.2 fL (7.4-10.4); Monocytes # (auto) 0.47 K/uL (0.11-0.59); Monocytes % (auto) 3.6 %; Neutrophils # (auto) 12.07 K/uL (1.4-6.5); Neutrophils % (auto) 92.3 %; Platelet Count 144 K/uL (130-400); RDW Coefficient of Variation 13.3 % (11.5-14.5); Red Blood Count 4.83 M/uL (4.7-6.1); White Blood Count 13.07 K/uL (4.8-10.8)
[2021-10-19 07:29] LABS: BUN Creatinine Ratio 22.8 (10-20); Calcium 9.3 mg/dl (8.5-10.1); Creatinine Clr Calc Pharmacy 63.1 ml/min; Est GFR (African American) 81.6 ml/min; Est GFR (Non-African American) 70.4 ml/min; Potassium 4.8 mmol/L (3.5-5.1)
[2021-10-19] MEDS: MULTIVITAMIN TAB PO SCH (07:38)
[2021-10-19] MEDS: CALCIUM 600MG + VIT D 400 IU TAB PO SCH (07:38)
[2021-10-19] MEDS: LOSARTAN POTASSIUM 50 MG TAB PO SCH (07:38)
[2021-10-19] MEDS: METOPROLOL SUCC 50MG EXT REL TAB PO SCH ×2 (07:38→21:12)
[2021-10-19] MEDS: DABIGATRAN ETEXILATE 75 MG CAP PO SCH ×2 (07:38→21:11)
[2021-10-19] MEDS: methylPREDNISolone 40 MG in SYRINGE 0 ML IV SCH (07:39)
[2021-10-19] MEDS: FLUTICASONE PROPIONATE NA SPR 16 GM BTL SCH ×2 (07:39→21:10)
[2021-10-19] MEDS: FUROSEMIDE 40 MG/4 ML VIAL IV SCH ×2 (07:39→17:24)
[2021-10-19] MEDS ORDERED: FUROSEMIDE 40 MG/4 ML VIAL IV SCH (09:00)
[2021-10-19] MEDS ORDERED: AZITHROMYCIN 250 MG TAB PO SCH (09:00)
--- NOTE | 2021-10-19 12:05 | Hospitalist Progress Note ---
Date of Service October 19, 2021 Assessment & Plan (1) Acute on chronic diastolic heart failure: Plan: Due to change in diet as his has gotten sicker, and he is cooking more and using more pre-packaged foods. EF 60 - 65% this admission. - Continue Lasix 40mg IV BID - Monitor weights and I&Os -> Bedside scale being used and floor not tracking I&Os. Will speak with RN and get better assessments. - CHF PA consult (2) COPD exacerbation: Plan: Questionable. No official diagnosis of COPD. Possible recent exacerbation with post nasal drip. - Stop azithromycin & steroids - Change Duonebs to PRN - Fluticasone nasal spray for post nasal drip (3) Acute respiratory failure with hypoxia: Plan: Suspect combination of hypervolemic state and COPD exacerbation - Aim O2 sats > 90% (4) Permanent atrial fibrillation: Plan: Suspect mild rate increase in ER due to albuterol and missing his morning metoprolol. - Continue metoprolol succinate 150mg PO BID - Continue dabigatran 150mg PO BID (5) Enlarged prostate with lower urinary tract symptoms (LUTS): Plan: No LUTS presently. - Continue tamsulosin 0.4mg PO daily (6) Hypercholesterolemia: Plan: - Continue atorvastatin 40mg PO daily Admission and Anticipated Discharge Date Admission Date: October 18, 2021 Subjective Breathing much better at this time. Feels legs are still slightly swollen. Reports no fevers/chills, chest pain, abdominal pain, nausea, or vomiting. Physical Exam Constitutional: WD/WN, vitals as above Eyes: EOM intact bilaterally; no conjunctival abnormality ENMT: external ear and nose normal, oropharynx normal Neck: trachea midline, no thyromegaly normal visual inspection Respiratory: normal respiratory effort, lungs clear to auscultation no respiratory distress Cardiovascular: Rate/Rhythm: regular rate and + irregularly irregular Heart Sounds: normal S1 and normal S2 Extremities: + edema (Mild) Gastrointestinal (Abdomen): Inspection/Auscultation: abdomen normal to inspection; abdomen not distended Musculoskeletal: no cyanosis or clubbing, extremities motor strength 5/5 Skin: no rashes, warm and dry Neurologic: moves all extremities and awake Psychiatric: Orientation: alert, oriented to person and cooperative Results & Data Results & Data ([facility]) Vital Signs (Past 12 Hours) Vital Signs Temp Pulse Pulse Resp BP Pulse Ox 10/19/21 11:30 83 18 96 10/19/21 11:14 36.6 C 97 H 18 155/76 H 92 10/19/21 07:26 85 18 91 10/19/21 06:38 36.4 C L 86 20 135/84 94 10/19/21 03:43 36.9 C 81 20 132/80 97 10/19/21 02:28 76 20 93 10/19/21 00:37 91 H PG Care Time/CCT Total # of Minutes Spent Total Time Spent with Patient: Total time spent is greater than 50% in coordination of care (as documented) at patient's floor/unit and/or counseling patient: Coding Level of Care Code 64386 Subseq Hosp Care Lvl 3 Diagnoses Acute respiratory failure with hypoxia J96.01 COPD exacerbation J44.1 Acute on chronic diastolic heart failure I50.33 Permanent atrial fibrillation I48.21 Enlarged prostate with lower urinary tract symptoms (LUTS) N40.1 Hypercholesterolemia E78.00
[2021-10-19] MEDS ORDERED: ALBUT/IPRATROP 3MG/0.5MG NEB 3 ML VIAL NEB PRN (12:06)
--- NOTE | 2021-10-19 14:05 | Heart Failure Consultation ---
Date of Consultation October 19, 2021 Assessment & Plan (1) Acute on chronic heart failure with preserved ejection fraction (HFpEF): (2) Permanent atrial fibrillation: HFpEF: NYHA Class III symptoms on admission. Patient was hypervolemic on exam with heart failure symptoms. Etiology likely diuretic nonadherence in combination with dietary indiscretion. EF remains preserved. He has responded favorably to diuresis. I&Os are likely inaccurate but he is clinically improving. Educated patient on importance of capturing urine output. New order placed for daily standing weights. Outpatient dry weight noted to be 212 lb. He continues on supplemental O2 but with stable saturations. Hopefully will be able to wean soon. Continue Lasix 40 mg IV BID. Kidney function and electrolytes are stable. Anticipate discharge home tomorrow so he can resume caring for his at home. Suspect with improved compliance he will do well on his previous home dose. Will also require low sodium diet education. We discussed the heart failure program and he is agreeable to ongoing participation. Atrial fibrillation: Asymptomatic. Rate well controlled. Continue current regimen. Continue anticoagulation. Disposition: Anticipate close outpatient follow up. Scheduled for 10/25 at 10:30. Today's plan of care was discussed with Dr. Person and Dr. Longoria. Will continue to follow during hospitalization. History of Present Illness Attending Physician: Charly Person MD History of Present Illness Patient is a 81 year old with with history of chronic HFpEF, atrial fibrillation, hypertension, and hypercholesterolemia. Dr. Longoria is his primary marketing researcher. Recent cardiac studies: 1. 10/18/21 Echo: Mild concentric LVH. LV systolic function normal, EF 60-65%. Severe biatrial dilation. RVSP elevated 40-40 mmHg. Patient presented to the ED on 10/18/21 with shortness of breath, hypoxia, cough/wheezing. He was placed on supplemental O2. He was treated initially with Duonebs and steroids with good response. Troponin negative. EKG with rate controlled atrial fibrillation. COVID 19 negative. CXR without pleural effusion or pulmonary edema. Echo with normal EF and severe biatrial dilation. He was initiated on Lasix 40 mg IV on admission. Patient was evaluated this afternoon with the heart failure program. He reports feeling poorly several days prior to admission. He admits to nonadherence with his diuretic when he has social engagements. This is often several times per week. He also admits to more dietary indiscretion recently. His is having health issues and he has been eating more take out and processed foods. He reports he's feeling improved today. His breathing is better and his edema is improving. He is still on O2 2L today. He sleeps with his head elevated. He denies further coughing or wheezing. He denies chest pain, palpitations, or hematuria. I&Os likely inaccurate. Weight is down from admission. Allergies Allergy/AdvReac Type Severity Reaction Status Date / Time Penicillins Allergy Mild SWELLING Verified 06/07/21 10:16 Home Medications Medication Instructions Recorded Confirmed Type calcium carbonate 600 mg-vitamin 1 tab PO QAM 05/13/18 10/18/21 History D3 20 mcg (800 unit) chewable tablet (Caltrate 600 plus D) multivitamin 1 tab PO DAILY 03/07/19 10/18/21 History atorvastatin 40 mg tablet 40 mg PO HS #90 tab 10/21/20 10/18/21 Rx dabigatran etexilate 150 mg capsule 150 mg PO BID #180 cap 10/21/20 10/18/21 Rx losartan 50 mg tablet 50 mg PO QAM #90 tab 10/21/20 10/18/21 Rx tamsulosin 0.4 mg capsule 0.4 mg PO QPM #30 cap 11/30/20 10/18/21 Rx furosemide 40 mg tablet 40 mg PO DAILY PRN #90 tab 12/31/20 10/18/21 Rx metoprolol succinate 100 mg 150 mg PO BID 10/18/21 10/18/21 History tablet,extended release 24 hr Patient History Medical History (Updated 10/19/21 @ 15:07 by Maryann Garcia PA-C) Atrial fibrillation follows with Dr. Longoria BPH (benign prostatic hyperplasia) History of colon polyps Hyperlipidemia Hypertension On anticoagulant therapy Osteoarthritis Prostate cancer 2013--radiation Rectal bleeding Surgical History History of colonoscopy History of prostate biopsy malignant History of wisdom tooth extraction Family History Aunt Family history of diabetes mellitus Other No family history of adverse response to anesthesia Social History (Updated 10/18/21 @ 11:22 by Santiago Romero DO) Smoking Status: Never smoker Age Started Using Tobacco: 17; Age Quit Using Tobacco: 27; Years Smoked: 10; Number of Years Since Quit: 52; Second Hand Exposure: No; Hx Alcohol Use: No Hx Substance Use: No Preferred Language: Serbian Communication Ability: Effective Geophysical E Logger Required: No Beliefs That Will Affect Care: None Current Living Situation: Spouse Feels Safe at Home: Yes Assistive Devices: Glasses Physical Exam Physical Exam: Constitutional: Alert, oriented, in no acute distress. Sup plemental O2 via NC HEENT: Head is atraumatic and normocephalic. EOMs intact. Sclera anicteric. Face is symmetric. No perioral cyanosis. Mucous membranes moist. Neck: Supple, + JVD correction to the mandible at 45 degrees. Pulmonary: Normal respiratory effort, clear to auscultation bilaterally Cardiac: Irregular rate and rhythm. Normal S1 and S2, no gallops, no rubs, no murmurs Extremities: 2+ radial pulses bilaterally. 2+ posterior tibialis pulses bilaterally. 1+ pitting edema. No cyanosis or clubbing. Abdomen: Normal bowel sounds, soft, non-tender, no abdominal mass palpated Skin: Normal skin color, turgor, and pigmentation, no rash, no skin lesions Neurological: Patient is awake, alert, and oriented. Pleasant and cooperative. Answers questions appropriately. Speech is clear. Normal movement in all 4 extremities. Results & Data ([facility]) Vital Signs (Past 12 Hours) Vital Signs Temp Pulse Pulse Resp BP Pulse Ox 10/19/21 11:30 83 18 96 10/19/21 11:14 97.9 F 97 H 18 155/76 H 92 10/19/21 07:26 85 18 91 10/19/21 07:00 88 10/19/21 06:38 97.5 F L 86 20 135/84 94 10/19/21 03:43 98.4 F 81 20 132/80 97 10/19/21 02:28 76 20 93 Heart Failure Data/Metrics Heart Failure Type: HFpEF (EF > 50%) Ejection Fraction: 60-65% Evidenced Based Beta Xiao Therapy Beta Xiao Therapy: Not Indicated CHELSEA/ARB/ARNI Therapy CHELSEA/ARB/ARNI Therapy: Not Indicated Aldosterone Antagonist Therapy Aldosterone Antagonist Therapy: Not Indicated Coding Level of Care Code 60762 Initial Inpt Care Lvl 3 Diagnoses Acute on chronic heart failure with preserved ejection fraction (HFpEF) I50.33 Permanent atrial fibrillation I48.21
[2021-10-19] MEDS: ATORVASTATIN 40 MG TAB PO SCH (21:11)
[2021-10-19] MEDS: TAMSULOSIN HCL 0.4 MG CAP PO SCH (21:12)
[2021-10-20 06:07] LABS: Hematocrit (blood only) 46.4 % (42-52); Hemoglobin 15.6 g/dL (14.0-18.0); Mean Corpuscular Hemoglobin 31.6 pg (25-34); Mean Corpuscular Hgb Conc 33.6 g/dL (32-36); Mean Corpuscular Volume 93.9 fL (80-100); Mean Platelet Volume 10.3 fL (7.4-10.4); Platelet Count 155 K/uL (130-400); RDW Coefficient of Variation 13.5 % (11.5-14.5); RDW Standard Deviation 46.4 fL (36.4-46.3); Red Blood Count 4.94 M/uL (4.7-6.1); White Blood Count 15.37 K/uL (4.8-10.8)
[2021-10-20 06:25] LABS: BUN Creatinine Ratio 29.5 (10-20); Calcium 9.2 mg/dl (8.5-10.1); Creatinine Clr Calc Pharmacy 52.2 ml/min; Potassium 4.5 mmol/L (3.5-5.1)
[2021-10-20] MEDS: DABIGATRAN ETEXILATE 75 MG CAP PO SCH (08:20)
[2021-10-20] MEDS: CALCIUM 600MG + VIT D 400 IU TAB PO SCH (08:20)
[2021-10-20] MEDS: FLUTICASONE PROPIONATE NA SPR 16 GM BTL SCH (08:20)
[2021-10-20] MEDS: FUROSEMIDE 40 MG/4 ML VIAL IV SCH (08:21)
[2021-10-20] MEDS: LOSARTAN POTASSIUM 50 MG TAB PO SCH (08:21)
[2021-10-20] MEDS: MULTIVITAMIN TAB PO SCH (08:22)
[2021-10-20] MEDS: METOPROLOL SUCC 50MG EXT REL TAB PO SCH (08:22)
--- NOTE | 2021-10-20 10:34 | XRay Report ---
XR chest 2V PA/lateral CLINICAL HISTORY: Hypoxemia, leukocytosis TECHNIQUE: AP and lateral radiographs of the chest was obtained. Comparison: Comparison is made to chest radiographs 10/18/2028 2 FINDINGS: No lines and tubes are seen. Cardiomegaly is noted. A calcified aortic arch is noted. The lungs are c lear. No evidence of pleural effusion or pneumothorax. IMPRESSION: No acute chest disease. Cardiomegaly is noted. ACT 112: Negative or not required by law. Electronically signed by: Chandu Mijares M.D. 10/20/2021 10:33 AM
--- NOTE | 2021-10-20 11:32 | Heart Failure Progress Note ---
Date of Service October 20, 2021 Assessment & Plan (1) Acute on chronic heart failure with preserved ejection fraction (HFpEF): (2) Permanent atrial fibrillation: Plan: HFpEF: NYHA Class III symptoms on admission. Patient was hypervolemic on exam with heart failure symptoms. Etiology likely diuretic nonadherence in combination with dietary indiscretion. EF remains preserved. He has responded favorably to diuresis. I&Os are likely inaccurate but he is clinically impr oving. Outpatient dry weight noted to be 212 lb. He is 211 lb today. He continues on supplemental O2 but with stable saturations. Planning for 2 step on discharge. BUN bumped slightly this am. Anticipate discharge home today so he can resume caring for his at home. Suspect with improved compliance he will do well on his previous home dose- Lasix 40 mg daily. Plan to repeat labs Monday before his follow up appt. Will also require low sodium diet education. We discussed the heart failure program and he is agreeable to ongoing participation. Atrial fibrillation: Asymptomatic. Rate well controlled. Continue current regimen. Continue anticoagulation. Disposition: Anticipate close outpatient follow up. Scheduled for 10/25 at 10:30. Today's plan of care was discussed with Dr. Person. Admission and Anticipated Discharge Date Admission Date: October 18, 2021 Subjective Patient reports he's not feeling as well as he expected. He remains on supplemental O2. He did ambulate in the hallway yesterday without but required O2. He denies any significant coughing or wheezing. He denies chest pain or palpitations. BNP 162. CXR today is clear. Standing weight this am 211 lb which appears to be lower than his typical baseline per the chart. Physical Exam Physical Exam: Constitutional: Alert, oriented, in no acute distress. Supplemental O2 via NC HEENT: Head is atraumatic and normocephalic. EOMs intact. Sclera anicteric. Face is symmetric. No perioral cyanosis. Mucous membranes moist. Neck: Supple, + JVD just above the clavicle. Pulmonary: Normal respiratory effort, clear to auscultation bilaterally Cardiac: Irregular rate and rhythm. Normal S1 and S2, no gallops, no rubs, no murmurs Extremities: 2+ radial pulses bilaterally. 2+ posterior tibialis pulses bilaterally. Trace + pitting edema. No cyanosis or clubbing. Abdomen: Normal bowel sounds, soft, non-tender, no abdominal mass palpated Skin: Normal skin color, turgor, and pigmentation, no rash, no skin lesions Neurological: Patient is awake, alert, and oriented. Pleasant and cooperative. Answers questions appropriately. Speech is clear. Normal movement in all 4 extremities. Results & Data ([facility]) Vital Signs (Past 12 Hours) Vital Signs Temp Pulse Pulse Resp BP BP Pulse Ox 10/20/21 11:21 97.5 F L 80 22 151/87 H 94 10/20/21 07:51 97.3 F L 78 18 150/87 H 96 10/20/21 06:15 80 10/20/21 04:15 97.5 F L 87 18 137/93 91 10/20/21 01:10 88 PG Care Time/CCT Total # of Minutes Spent Total Time Spent with Patient: Total time spent is greater than 50% in coordination of care (as documented) at patient's floor/unit and/or counseling patient: Heart Failure Data/Metrics Heart Failure Type: HFpEF (EF > 50%) Ejection Fraction: 60-65% Evidenced Based Beta Xiao Therapy Beta Xiao Therapy: Not Indicated CHELSEA/ARB/ARNI Therapy CHELSEA/ARB/ARNI Therapy: Not Indicated Aldosterone Antagonist Therapy Aldosterone Antagonist Therapy: Not Indicated Coding Level of Care Code 95318 Subseq Hosp Care Lvl 3 Diagnoses Acute on chronic heart failure with preserved ejection fraction (HFpEF) I50.33 Permanent atrial fibrillation I48.21
--- NOTE | 2021-10-20 16:16 | Discharge Summary ---
Date of Service October 20, 2021 Admission HPI Per Admitting Provider Brendan Longoria is a 81 year old male who presents to the ER with shortness of breath for the last 3 days getting progressively worse. He does not wear oxygen at home. Called EMS this morning due to worsening shortness of breath. He has been using his 's nebulizers with mild improvement. He has associated wheezing but no chest pain. He also notes more chronic shortness of breath on exertion progressively getting worse over the last year. For years he has also had to clear his throat in the evenings and associated post nasal drip. He reports starting on Lasix for the last 6 months (initially prescription in October last ). He reports taking this almost daily (misses doses when he travelling) although notably as not picked up a prescription since December 2020. He does not measure his home weight but also does not feel he has recently gained weight. Dry weight per cardiology note 212lb, currently 227lb. Leg swelling at baseline. He notably has chronic atrial fibrillation, anticoagulated with Pradaxa and rate controlled in the emergency room on his usual metoprolol succinate. In the ER he was hypoxic down to 86% on room air which improved to 92% on 2LPM O2. He was given Solu-medrol 125mg IV and Duoneb 3ml x2. He was referred to medicine for admission and ongoing management of COPD exacerbation. Principal Diagnosis Acute on chronic diastolic heart failure due to dietary changes Discharge Exam Constitutional WD/WN, vitals as above Eyes EOM intact bilaterally; no conjunctival abnormality ENMT external ear and nose normal, oropharynx normal Neck trachea midline, no thyromegaly normal visual inspection Respiratory normal respiratory effort, lungs clear to auscultation no respiratory distress Cardiovascular Rate/Rhythm: regular rate and + irregularly irregular Heart Sounds: normal S1 and normal S2 Extremities: + edema (Mild) Gastrointestinal (Abdomen) Inspection/Auscultation: abdomen normal to inspection; abdomen not distended Musculoskeletal no cyanosis or clubbing, extremities motor strength 5/5 Skin no rashes, warm and dry Neurologic moves all extremities and awake Psychiatric Orientation: alert, oriented to person and cooperative Discharge Data Allergies Allergy/AdvReac Type Severity Reaction Status Date / Time Penicillins Allergy Mild SWELLING Verified 06/07/21 10:16 Consultations 10/18/21 11:32 ED Decision to Admit Stat 10/18/21 14:35 [facility] CHF Program Referral Routine Hospital Course (1) Acute on chronic diastolic heart failure: Due to change in diet as his has gotten sicker, and he is cooking more and using more pre-packaged foods. EF 60 - 65% this admission. - Continued Lasix 40mg IV BID while inpatient. - Monitor weights and I&Os -> Bedside scale being used and floor not tracking I&Os. Will speak with RN and get better assessments. - CHF PA consulted -> By discharge, he was down to 211 lbs. This seemed to be near his dry weight. He still required O2, but felt he had to get home to help care for his . Given his general stability, this was deemed acceptable by myself and HF PA. - Discharged on Lasix 40 mg PO daily. Instructed to monitor weights and call Eloise Garcia with any changes. Will see her in clinic next week. (2) COPD exacerbation: Central to be less likely by discharge. No official diagnosis of COPD. - Stopped azithromycin & steroids - Change Duonebs to PRN - Fluticasone nasal spray for post nasal drip (3) Acute respiratory failure with hypoxia: Suspect combination of hypervolemic state and COPD exacerbation - Aim O2 sats > 90% - Discharged on home O2: 2L at rest and 4L with exertion. (4) Permanent atrial fibrillation: Suspect mild rate increase in ER due to albuterol and missing his morning metoprolol. - Continue metoprolol succinate 150mg PO BID - Continue dabigatran 150mg PO BID (5) Enlarged prostate with lower urinary tract symptoms (LUTS): No LUTS presently. - Continue tamsulosin 0.4mg PO daily (6) Hypercholesterolemia: - Continue atorvastatin 40mg PO daily Total Time Total Time Spent Total Time Spent (In Minutes): 35 Discharge Plan Discharge Items Patient Disposition: Home - Self-Care Reason For Visit: COPD EXACERBATION, ACUTE ON CHRONIC CHF Discharge Diagnosis: CHF exacerbation Activity: Resume your previous activity Non-emergency contact: Primary Care Provider and Field Installation Technician Call non-emergency contact if: your symptoms worsen Follow-up/Referrals: Maryann Garcia PA-C [Physician Transportation Aide] - 10/25/21 10:30 am (Congestive Heart Failure Program Appointment Information Early follow up is essential to managing your heart failure. An appointment has been scheduled for you with the [facility] Heart Failure Program within 7 days of discharge. Anticipate this visit to be 30-60 minutes long. Please expect a accounts supervisor phone call from one of our nurses approximately 48 hours from discharge. They will also be placing an order for lab work to be completed 1-2 days prior to your heart failure follow up appointment. Please be sure to have this done so we can go over the results when you come in. Office Location The cardiology office building is located in front of the hospital at [address] [facility]. Bring the following with you to your follow-up doctor appointments: Please bring your daily weight log any discharge paperwork all of your medication bottles with you to this visit. ) Tre Garcias Jr, DO [Primary Care Provider] - 10/25/21 12:00 pm Diet: Heart Healthy and Low Sodium (2gm) Addtl Attending Provider Instructions: Mr. Longoria, You were admitted to the hospital with a CHF exacerbation. This probably occur red because of your change in diet with your 's illnesses that she is struggling with. You are currently at a "dry weight" meaning, we think we have gotten all the fluid off you. Please weigh yourself at home to see what your new scale weighs you as. Then, weigh yourself every morning after using the restroom. From now on, please take your furosemide (Lasix) every day, instead of "as needed." Please see Maryann Garcia in the clinic next week to check on how you are doing. We have arranged home oxygen for you. Please use it as directed. If you start to gain weight, have more shortness of breath, see more swelling on your legs, or other concerning symptoms, please call Maryann Garcia. If you are concerned for your safety, come to the hospital or call . Pending Studies at Discharge: No Stand-Alone Forms: My 3Nod, Smoking Cessation Medications and DC Order Prescriptions: Continued tamsulosin 0.4 mg capsule 0.4 mg PO QPM Qty: 30 RF: 11 multivitamin tablet 1 tab PO DAILY RF: 0 losartan 50 mg tablet 50 mg PO QAM Qty: 90 RF: 3 dabigatran etexilate 150 mg capsule 150 mg PO BID Qty: 180 RF: 3 atorvastatin 40 mg tablet 40 mg PO HS Qty: 90 RF: 3 Caltrate 600 plus D 600 mg (1,500 mg)-800 unit Tablet,Chewable 1 tab PO QAM RF: 0 metoprolol succinate 100 mg tablet extended release 24 hr 150 mg PO BID RF: 0 Changed furosemide 40 mg tablet 40 mg PO DAILY Qty: 90 RF: 3 Discharge Orders: Discharge Order (Routine); Ordered 10/20/21 Ordered By: Charly Person Admission Data Admit Date/Time: 10/18/21 11:55 Attending Provider: Charly Person Admit Provider: Ebenezer Diaz Primary Care Provider: Tre Garcias Jr Other Providers: Maryann Garcia ; Charly Person Other Interventions: Discharge Summary Assessment (RN) Last Done: 10/20/21 12:29 Coding Level of Care Code D/C DAY MANAGEMENT >30 MINS Diagnoses Acute on chronic diastolic heart failure I50.33 COPD exacerbation J44.1 Acute respiratory failure with hypoxia J96.01 Permanent atrial fibrillation I48.21 Enlarged prostate with lower urinary tract symptoms (LUTS) N40.1 Hypercholesterolemia E78.00
== END 2021-10-20 16:31 | disposition home or self-care (01) | DRG 291 ==
LOC: ED 09:35 → 2N 11:55 → SUATTDRO 11:55 → 2N 13:09
DX: Z91.11 Patient's noncompliance with dietary regimen; J96.01 Acute respiratory failure with hypoxia; Z79.01 Long term (current) use of anticoagulants; I48.20 Chronic atrial fibrillation, unspecified; J44.1 Chronic obstructive pulmonary disease with (acute) exacerbation; I11.0 Hypertensive heart disease with heart failure; Z83.3 Family history of diabetes mellitus; J96.02 Acute respiratory failure with hypercapnia; Z88.0 Allergy status to penicillin; Z87.891 Personal history of nicotine dependence; Z92.3 Personal history of irradiation; Z85.46 Personal history of malignant neoplasm of prostate; E78.5 Hyperlipidemia, unspecified; N40.1 Benign prostatic hyperplasia with lower urinary tract symptoms; I48.21 Permanent atrial fibrillation; I50.33 Acute on chronic diastolic (congestive) heart failure; E78.00 Pure hypercholesterolemia, unspecified

== ENCOUNTER 2022-04-14 11:23 | Observation (INO) ==
--- NOTE | 2022-04-14 12:21 | Emergency Department Note ---
Impression & Plan Acute GI bleeding, Anticoagulant long-term use, Anemia ED Provider Note NAME: ART GARCIA AGE: 81 SEX: M : 1940 ARRIVES VIA: Walk-In INFORMANT: Patient, ED PROVIDER(S): Darwin Arredondo MD Chief Complaint: Abnormal blood work HPI: Patient presents to the behest of his primary care doctor due to concern for abnormal blood work. The patient believes that he has had a drop in his hemoglobin. The patient denies any abdominal pains. The patient did have a fall several weeks ago for which he did have a CT of the head completed along with an upper extremity x-ray which were negative. Patient does take Pradaxa for known history of A. fib denies any abdominal or chest pain. Patient denies any vomiting or blood the patient has not had any evidence of bright red blood per rectum or dark tarry stools. Patient last took his Pradaxa this morning. Patient denies any lightheadedness or dizziness. The patient does have chronic shortness of breath which he states is unchanged. Patient does follow with Dr. Longoria for cardiology. ROS: See HPI for pertinent positives and negatives. A total of 10 systems were reviewed and otherwise negative. Past medical history: See below Surgical history: See below Social history: See below Physical Exam: GENERAL: NAD, wearing a mask, non-toxic. EYE EXAM: Normal conjunctiva. PERRL, no anisocoria and EOM's grossly intact w/o pain. NECK: Supple, no nuchal rigidity, no adenopathy, non-tender. No signs of meningismus. FROM of the neck with good chin to chest and neck extension. No stridor. LUNGS: Clear to auscultation. Normal chest wall mechanics. HEART: NSR, no MRG. ABDOMEN: Abdomen soft, non-tender, normo-active bowel sounds, no masses, no rebound or guarding. BACK: No CVA TTP. SKIN: No rashes and no bruising. Rectal: 1 external nonbleeding nonthrombosed hemorrhoid, heme positive stool. UPPER EXTREMITIES: Upper extremities are grossly normal. LOWER EXTREMITIES: Grossly normal, no edema. NEURO EXAM: A&O x3, cranial nerves II-XII grossly intact, normal speech, moves all 4 extremities. Differential diagnoses: Diverticulosis, AVM, coagulopathy, colitis, inflammatory bowel disease, malignancy, Barbie-Montano tear, esophagitis, peptic ulcer d isease, variceal bleed, gastritis, epistaxis, fissure, hemorrhoids, as well as other pathologies. Course: Patient was seen and evaluated the bedside. Full history physical exam was performed. EKG interpreted by me Sari andrea, rate of 71, normal axis, no ST elevations, PVC noted. Imaging Studies: See Below Cardiac monitoring: An order was placed for continuous cardiac monitoring. The monitor shows a rate of 72 with sinus rhythm. MDM: Patient was seen due to concern for change in hemoglobin. I did review the patient's most recent hemoglobin over the last week which has been consistent but compared to earlier in the year the patient has had almost a five-point drop in his hemoglobin. Patient was ordered a PPI bolus and drip type and screen and 2 IVs. Given the patient's associated GI bleeding believe the patient would benefit from inpatient treatment at this time. I did speak the on-call hospitalist Dr. Diaz and the patient was admitted to the medicine service. Past Med/Surg History Medical History (HFpEF) heart failure with preserved ejection fraction Atrial fibrillation follows with Dr. Longoria BPH (benign prostatic hyperplasia) History of colon polyps Hyperlipidemia Hypertension On anticoagulant therapy Osteoarthritis Osteopenia Permanent atrial fibrillation Prostate cancer 2013--radiation Rectal bleeding Type 2 diabetes mellitus Surgical History History of colonoscopy History of prostate biopsy malignant History of wisdom tooth extraction Family History Aunt Family history of diabetes mellitus Father Myocardial infarction Other No family history of adverse response to anesthesia Denies family history of Ovarian cancer Prostate cancer Breast cancer Lung cancer Colorectal cancer Stroke Social History Smoking Status: Never smoker Age Started Using Tobacco: 17; Age Quit Using Tobacco: 27; packs per day: 1; Years Smoked: 10; Cigarettes Per Day: 20; Number of Years Since Quit: 52; Second Hand Exposure: No; Hx Alcohol Use: Yes (1 or 2 beers daily) Alcohol type: beer Alcohol Intake Frequency: 4 or More x per/Week Hx Substance Use: No Preferred Language: Jamaican Communication Ability: Effective Visual Impairment: Limited Hearing Ability: Hard of Hearing It Web Development Consultant Required: No Beliefs That Will Affect Care: None marital status: Current Living Situation: Spouse current occupational status: retired Feels Safe at Home: Yes Childhood Exposure to Second-Hand Smoke: No Physical Activity Frequency: Does not Exercise Assistive Devices: Oxygen - Continuous Allergies Allergies Allergy/AdvReac Type Severity Reaction Status Date / Time Penicillins Allergy Mild SWELLING Verified 04/05/22 14:10 Home Meds Home Medications Medication Instructions Recorded Confirmed calcium carbonate 600 mg-vitamin 1 tab PO QAM 05/13/18 04/14/22 D3 20 mcg (800 unit) chewable tablet (Caltrate 600 plus D) multivitamin 1 tab PO DAILY 03/07/19 04/14/22 Previous Rx's Medication Instructions Recorded tamsulosin 0.4 mg capsule 0.4 mg PO QPM #30 caps 11/30/20 dabigatran etexilate 150 mg capsule 150 mg PO BID #180 caps 11/01/21 atorvastatin 40 mg tablet 40 mg PO HS #90 tabs 11/29/21 furosemide 40 mg tablet 80 mg PO DAILY #180 tabs 12/14/21 losartan 50 mg tablet 50 mg PO QAM #90 tabs 12/14/21 metoprolol succinate 100 mg 150 mg PO DAILY #180 tabs 12/14/21 tablet,extended release 24 hr Results & Data (ED) Vital Signs Vital Signs - 24 hr 04/14/22 11:42 04/14/22 12:28 Temperature 36.9 C Temperature Source Oral Pulse Rate 74 Pulse Rate [Finger] 84 Respiratory Rate 16 16 Respiratory Effort / Characteristics Non-Labored Spontaneous Non-Labored Respiratory Depth Normal Normal Respiratory Pattern Regular Regular Blood Pressure 124/66 Blood Pressure [Right Arm] 144/66 H Blood Pressure Mean 85 Blood Pressure Mean [Right Arm] 92 Blood Pressure Position Sitting Blood Pressure Position [Right Arm] Lying Pulse Oximetry 99 100 Oxygen Delivery Method Room Air Room Air Sepsis Recent Fever Within 48 Hours No Sepsis New/Unexplained Change in Mental Status No Sepsis Action Taken by Nursing No Action Required Home Medications Current Medication List: was personally reviewed by me Laboratory Data Attestation: I reviewed the patient's lab results. Result diagrams: 04/14/22 12:05 04/14/22 12:05 Lab Results 04/14/22 04/14/22 04/14/22 Range/Units 12:05 12:05 12:05 WBC 5.05 (4.8-10.8) K/ul RBC 3.50 L (4.63-6.08) M/uL Hgb 9.0 L (14.0-18.0) g/dl Hct 28.5 L (40.1-51.0) % MCV 81.4 (80.0-100.0) fL MCH 25.7 (25.0-34.0) pg MCHC 31.6 L (32.0-36.0) g/dL RDW Std Deviation 43.4 (36.4-46.3) fL RDW Coeff of Morgan 14.8 H (11.5-14.5) % Plt Count 229 (130-400) K/uL MPV 9.9 (9.4-12.4) fL Immature Gran % (Auto) 0.2 % Neut % (Auto) 65.7 % Lymph % (Auto) 21.8 % Austin % (Auto) 9.1 % Eos % (Auto) 2.2 % Baso % (Auto) 1.0 % Reticulocyte % (Auto) (0.5-2.0) % Neut # (Auto) 3.32 (1.4-6.5) K/uL Lymph # (Auto) 1.10 L (1.2-3.4) K/uL Austin # (Auto) 0.46 (0.24-0.82) K/uL Eos # (Auto) 0.11 (0-0.50) K/uL Baso # (Auto) 0.05 (0-0.2) K/uL Reticulocyte # (0.02-0.10) 10^6/uL Immature Gran # (Auto) 0.01 (0.00-0.02) K/uL PT 21.7 H (9.0-12.0) Seconds INR 2.1 H (0.9-1.1) APTT 44.3 H (21.0-31.0) Seconds PTT Ratio 1.6 Sodium 139 (136-145) mmol/L Potassium 4.4 (3.5-5.1) mmol/L Chloride 104 (98-107) mmol/L Carbon Dioxide 32 (21-32) mmol/L Anion Gap 3 (3-11) BUN 34 H (6-23) mg/dl Creatinine 1.32 (0.6-1.4) mg/dl Est Cr Clr Drug Dosing 45.9 ml/min Est GFR ( Amer) 59.0 ml/min Est GFR (Non-Af Amer) 50.9 ml/min BUN/Creatinine Ratio 25.8 H (10-20) Glucose 128 H (70-99(Fasting)) mg/dl Calcium 9.4 (8.5-10.1) mg/dl Total Bilirubin 0.7 (0.2-1.0) mg/dl AST 22 (13-39) U/L ALT 12 (7-52) U/L Alkaline Phosphatase 62 (34-104) U/L Total Protein 6.7 (6.0-8.3) gm/dl Albumin 3.9 (3.4-5.0) gm/dl Globulin 2.8 (2.5-4.0) gm/dl Albumin/Globulin Ratio 1.4 (0.9-2) Vitamin B12 (180-914) pg/ml Folate (>5.38) ng/ml Urine Color Urine Appearance (Clear) Urine pH (4.5-7.5) Ur Specific [place] (1.000-1.030) Urine Protein (Negative) Urine Glucose (UA) (Negative) Urine Ketones (Negative) Urine Blood (Negative) Urine Nitrite (Negative) Urine Bilirubin (Negative) Urine Urobilinogen (Negative) Ur Leukocyte Esterase (Negative) POC Stool Occult Blood (Negative) Blood Type Antibody Screen 04/14/22 04/14/22 04/14/22 Range/Units 12:05 12:05 12:26 WBC (4.8-10.8) K/ul RBC (4.63-6.08) M/uL Hgb (14.0-18.0) g/dl Hct (40.1-51.0) % MCV (80.0-100.0) fL MCH (25.0-34.0) pg MCHC (32.0-36.0) g/dL RDW Std Deviation (36.4-46.3) fL RDW Coeff of Morgan (11.5-14.5) % Plt Count (130-400) K/uL MPV (9.4-12.4) fL Immature Gran % (Auto) % Neut % (Auto) % Lymph % (Auto) % Austin % (Auto) % Eos % (Auto) % Baso % (Auto) % Reticulocyte % (Auto) 1.7 (0.5-2.0) % Neut # (Auto) (1.4-6.5) K/uL Lymph # (Auto) (1.2-3.4) K/uL Austin # (Auto) (0.24-0.82) K/uL Eos # (Auto) (0-0.50) K/uL Baso # (Auto) (0-0.2) K/uL Reticulocyte # 0.06 (0.02-0.10) 10^6/uL Immature Gran # (Auto) (0.00-0.02) K/uL PT (9.0-12.0) Seconds INR (0.9-1.1) APTT (21.0-31.0) Seconds PTT Ratio Sodium (136-145) mmol/L Potassium (3.5-5.1) mmol/L Chloride (98-107) mmol/L Carbon Dioxide (21-32) mmol/L Anion Gap (3-11) BUN (6-23) mg/dl Creatinine (0.6-1.4) mg/dl Est Cr Clr Drug Dosing ml/min Est GFR ( Amer) ml/min Est GFR (Non-Af Amer) ml/min BUN/Creatinine Ratio (10-20) Glucose (70-99(Fasting)) mg/dl Calcium (8.5-10.1) mg/dl Total Bilirubin (0.2-1.0) mg/dl AST (13-39) U/L ALT (7-52) U/L Alkaline Phosphatase (34-104) U/L Total Protein (6.0-8.3) gm/dl Albumin (3.4-5.0) gm/dl Globulin (2.5-4.0) gm/dl Albumin/Globulin Ratio (0.9-2) Vitamin B12 379 (180-914) pg/ml Folate > 22.30 (>5.38) ng/ml Urine Color Urine Appearance (Clear) Urine pH (4.5-7.5) Ur Specific [place] (1.000-1.030) Urine Protein (Negative) Urine Glucose (UA) (Negative) Urine Ketones (Negative) Urine Blood (Negative) Urine Nitrite (Negative) Urine Bilirubin (Negative) Urine Urobilinogen (Negative) Ur Leukocyte Esterase (Negative) POC Stool Occult Blood (Negative) Blood Type O Positive Antibody Screen NEGATIVE 04/14/22 04/14/22 04/14/22 Range/Units 12:26 12:30 13:20 WBC (4.8-10.8) K/ul RBC (4.63-6.08) M/uL Hgb (14.0-18.0) g/dl Hct (40.1-51.0) % MCV (80.0-100.0) fL MCH (25.0-34.0) pg MCHC (32.0-36.0) g/dL RDW Std Deviation (36.4-46.3) fL RDW Coeff of Morgan (11.5-14.5) % Plt Count (130-400) K/uL MPV (9.4-12.4) fL Immature Gran % (Auto) % Neut % (Auto) % Lymph % (Auto) % Austin % (Auto) % Eos % (Auto) % Baso % (Auto) % Reticulocyte % (Auto) (0.5-2.0) % Neut # (Auto) (1.4-6.5) K/uL Lymph # (Auto) (1.2-3.4) K/uL Austin # (Auto) (0.24-0.82) K/uL Eos # (Auto) (0-0.50) K/uL Baso # (Auto) (0-0.2) K/uL Reticulocyte # (0.02-0.10) 10^6/uL Immature Gran # (Auto) (0.00-0.02) K/uL PT (9.0-12.0) Seconds INR (0.9-1.1) APTT (21.0-31.0) Seconds PTT Ratio Sodium (136-145) mmol/L Potassium (3.5-5.1) mmol/L Chloride (98-107) mmol/L Carbon Dioxide (21-32) mmol/L Anion Gap (3-11) BUN (6-23) mg/dl Creatinine (0.6-1.4) mg/dl Est Cr Clr Drug Dosing ml/min Est GFR ( Amer) ml/min Est GFR (Non-Af Amer) ml/min BUN/Creatinine Ratio (10-20) Glucose (70-99(Fasting)) mg/dl Calcium (8.5-10.1) mg/dl Total Bilirubin (0.2-1.0) mg/dl AST (13-39) U/L ALT (7-52) U/L Alkaline Phosphatase (34-104) U/L Total Protein (6.0-8.3) gm/dl Albumin (3.4-5.0) gm/dl Globulin (2.5-4.0) gm/dl Albumin/Globulin Ratio (0.9-2) Vitamin B12 (180-914) pg/ml Folate (>5.38) ng/ml Urine Color Yellow Urine Appearance Clear (Clear) Urine pH 7.5 (4.5-7.5) Ur Specific [place] 1.019 (1.000-1.030) Urine Protein Negative (Negative) Urine Glucose (UA) Negative (Negative) Urine Ketones Negative (Negative) Urine Blood Negative (Negative) Urine Nitrite Negative (Negative) Urine Bilirubin Negative (Negative) Urine Urobilinogen Negative (Negative) Ur Leukocyte Esterase Negative (Negative) POC Stool Occult Blood Positive A (Negative) Blood Type Cancelled Antibody Screen Cancelled Administered Medications Discontinued Medications Pantoprazole Sodium (Protonix Bolus/Drip) 0 mls @ 1 mls/hr IV ONE STA Stop: 04/14/22 13:22 Last Admin: 04/14/22 14:08 Dose: Not Given Documented By: MICHAEL Pantoprazole Sodium 40 mg/ (Dextrose) 100 mls @ 20 mls/hr IV Q5H [facility] Stop: 05/14/22 13:44 Last Infusion: 04/14/22 16:55 Dose: 0 mg/hr, 0 mls/hr Documented By: Admin: 04/14/22 13:59 Dose: 8 mg/hr, 20 mls/hr Documented By: MICHAEL Pantoprazole Sodium 80 mg/ (Dextrose) 120 mls @ 400 mls/hr IV NOW ONE Stop: 04/14/22 13:38 Last Infusion: 04/14/22 13:57 Dose: 0 mls/hr Documented By: Admin: 04/14/22 13:39 Dose: 400 mls/hr Documented By: [facility] Discharge Plan Visit Data Chief Complaint: Abnormal Labs/Diagnostic Testing Stated Complaint: SENT BY ABNORMAL LABS ED Provider: Darwin Arredondo Discharge Problem: Acute GI bleeding, Anticoagulant long-term use, Anemia Patient Disposition: Admitted As Inpatient
[2022-04-14 12:30] LABS: Basophils # (auto) 0.05 K/uL (0-0.2); Eosinophils # (auto) 0.11 K/uL (0-0.50); Eosinophils % (auto) 2.2 %; Hematocrit (blood only) 28.5 % (40.1-51.0); Immature Granulocytes # (auto) 0.01 K/uL (0.00-0.02); Immature Granulocytes % (auto) 0.2 %; Lymphocytes % (auto) 21.8 %; Mean Corpuscular Hemoglobin 25.7 pg (25.0-34.0); Mean Corpuscular Hgb Conc 31.6 g/dL (32.0-36.0); Mean Corpuscular Volume 81.4 fL (80.0-100.0); Mean Platelet Volume 9.9 fL (9.4-12.4); Monocytes # (auto) 0.46 K/uL (0.24-0.82); Monocytes % (auto) 9.1 %; Neutrophils # (auto) 3.32 K/uL (1.4-6.5); Neutrophils % (auto) 65.7 %; Platelet Count 229 K/uL (130-400); RDW Coefficient of Variation 14.8 % (11.5-14.5); RDW Standard Deviation 43.4 fL (36.4-46.3); White Blood Count 5.05 K/ul (4.8-10.8)
[2022-04-14 12:53] LABS: Appearance Urine Clear (Clear); Bilirubin Urine Negative (Negative); Blood Urine Negative (Negative); Color Urine Yellow; Glucose Urine UA Negative (Negative); Ketones Urine Negative (Negative); Leukocyte Esterase Urine Negative (Negative); Nitrite Urine Negative (Negative); Protein Urine Negative (Negative); Specific Gravity Urine 1.019 (1.000-1.030); Urobilinogen Urine Negative (Negative); pH Urine 7.5 (4.5-7.5)
[2022-04-14 12:59] LABS: Albumin Globulin Ratio 1.4 (0.9-2); Albumin Level 3.9 gm/dl (3.4-5.0); BUN Creatinine Ratio 25.8 (10-20); Bilirubin,Total 0.7 mg/dl (0.2-1.0); Calcium 9.4 mg/dl (8.5-10.1); Creatinine Clr Calc Pharmacy 45.9 ml/min; Est GFR (Non-African American) 50.9 ml/min; Globulin 2.8 gm/dl (2.5-4.0); Potassium 4.4 mmol/L (3.5-5.1); Total Protein 6.7 gm/dl (6.0-8.3)
[2022-04-14 13:00] LABS: INR 2.1 (0.9-1.1); Partial Thromboplastin Ratio 1.6; Partial Thromboplastin Time 44.3 Seconds (21.0-31.0); Prothrombin Time 21.7 Seconds (9.0-12.0)
[2022-04-14] MEDS ORDERED: PANTOPRAZOLE BOLUS/DRIP 1 EACH IV STA (13:21)
[2022-04-14] MEDS ORDERED: PANTOprazole 80 MG in DEXTROSE 5% 100 ML IV ONE (13:21)
--- NOTE | 2022-04-14 13:35 | History & Physical Report ---
Date of Service April 14, 2022 Assessment & Plan (1) Anemia: Plan: Probable slow GI bleed (iron def. anemia). Possible contributing towards fatigue and shortness of breath on exertion. Transferrin sats 8% - consider venofer transfusion if not needing blood Will also take labs for B12 and folate Repeat H&H this evening then if stable tomorrow morning. Transfuse < 7g/dL (2) Acute GI bleeding: Plan: NPO after midnight Consult gastroenterology to consider EGD +/- colonoscopy to assess for source to determine if patient can be restarted on his Pradaxa. 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 (3) Permanent atrial fibrillation: Plan: Anticoagulation on hold due to GI bleed Continue rate control with metoprolol succinate 150mg PO QAM (4) (HFpEF) heart failure with preserved ejection fraction: Plan: Appears euvolemic on exam. Hold furosemide tomorrow if having EGD. Plan VTE Prophylaxis - chemical prophylaxis contraindicated Diet - clear liquids, NPO after midnight Disposition - observation status ot med/tele Admission and Anticipated Discharge Date Admission Date: April 14, 2022 History of Present Illness Chief Complaint: Abnormal labs Primary Care Provider: Domi Arana MD Brendan Longoria is a 81 year old male who presents to the ER as advised by his PCP due to abnormal lab tests. Reportedly sent in due to hemoglobin drop from 9.4 nine days ago to 8.9 yesterday. He reports some increasing fatigue and decreased exercise tolerance over the last 2 weeks. He also has noticed some orthostasis and presyncope but this occurred 2 weeks ago and is actually improving. He has continued to take Pradaxa during this time. He denies any nausea, vomiting, abdominal pain, change in bowels, constipation, diarrhea, melena or bright red blood in stool. No significant history of heartburn and never had an EGD. He reports his last colonoscopy was normal approximately 8-9 years ago [addendum: his last colonoscopy on file is in [address] Chow with a few non bleeding angioectasias treated with argon laser]. He does note a family history of stomach cancer with his mother although this may have been her non-hodgkins lymphoma. He has a personal history of prostate cancer treated with radiation. He currently takes Pradaxa for atrial fibrillation. No prior DVT or PE. In the ER his repeat hemoglobin has actually increased to 9.0. Fecal occult blood was positive and he was started on pantoprazole IV 80mg bolus and 8mg/hr drip. He was referred to medicine for admission and ongoing management of suspected GI bleed given need to go back on Pradaxa. Allergies Allergy/AdvReac Type Severity Reaction Status Date / Time Penicillins Allergy Mild SWELLING Verified 04/05/22 14:10 Home Medications Medication Instructions Recorded Confirmed Type calcium carbonate 600 mg-vitamin 1 tab PO QAM 05/13/18 04/14/22 History D3 20 mcg (800 unit) chewable tablet (Caltrate 600 plus D) multivitamin 1 tab PO DAILY 03/07/19 04/14/22 History tamsulosin 0.4 mg capsule 0.4 mg PO QPM #30 caps 11/30/20 04/14/22 Rx dabigatran etexilate 150 mg capsule 150 mg PO BID #180 caps 11/01/21 04/14/22 Rx atorvastatin 40 mg tablet 40 mg PO HS #90 tabs 11/29/21 04/14/22 Rx furosemide 40 mg tablet 80 mg PO DAILY #180 tabs 12/14/21 04/14/22 Rx losartan 50 mg tablet 50 mg PO QAM #90 tabs 12/14/21 04/14/22 Rx metoprolol succinate 100 mg 150 mg PO DAILY #180 tabs 12/14/21 04/14/22 Rx tablet,extended release 24 hr Past Med/Surg History Medical History (HFpEF) heart failure with preserved ejection fraction Atrial fibrillation follows with Dr. Longoria BPH (benign prostatic hyperplasia) History of colon polyps Hyperlipidemia Hypertension On anticoagulant therapy Osteoarthritis Osteopenia Permanent atrial fibrillation Prostate cancer 2013--radiation Rectal bleeding Type 2 diabetes mellitus Surgical History History of colonoscopy History of prostate biopsy malignant History of wisdom tooth extraction Family History Aunt Family history of diabetes mellitus Father Myocardial infarction Other No family history of adverse response to anesthesia Denies family history of Ovarian cancer Prostate cancer Breast cancer Lung cancer Colorectal cancer Stroke Social History Smoking Status: Unknown if ever smoked Age Started Using Tobacco: 17; Age Quit Using Tobacco: 27; packs per day: 1; Years Smoked: 10; Cigarettes Per Day: 20; Number of Years Since Quit: 52; Second Hand Exposure: No; Hx Alcohol Use: Yes Alcohol type: beer Alcohol Intake Frequency: 4 or More x per/Week Hx Substance Use: No Preferred Language: Hungarian Communication Ability: Effective Visual Impairment: Limited Hearing Ability: Hard of Hearing Environmental Health Officer Required: No Beliefs That Will Affect Care: None marital status: Current Living Situation: Spouse current occupational status: retired Feels Safe at Home: Yes Safety Concerns: Feels Safe At This Time Childhood Exposure to Second-Hand Smoke: No Physical Activity Frequency: Does not Exercise Assistive Devices: Other Assistive Devices Comment: hx of home o2 on last DC from hospital- no longer us es Review of Systems Review of Systems: All systems reviewed & are unremarkable except as noted in HPI & below Physical Exam Constitutional: WD/WN, vitals as above Eyes: + anicteric sclerae; normal pupil size ENMT: external ear and nose normal, oropharynx normal Neck: trachea midline, no thyromegaly Respiratory: normal respiratory effort, lungs clear to auscultation Cardiovascular: Rate/Rhythm: regular rate and + irregularly irregular Heart Sounds: no murmur Extremities: normal capillary refill and + pedal edema (trace pre-tibial equal b/l); no calf tenderness Gastrointestinal (Abdomen): normal bowel sounds, soft, nontender, no hepatosplenomegaly Musculoskeletal: no cyanosis or clubbing, extremities motor strength 5/5 Skin: no rashes, warm and dry Neurologic: moves all extremities and awake; not confused Psychiatric: A+Ox3, euthymic affect Results & Data Results & Data ([facility]) Vital Signs (Past 12 Hours) Vital Signs Temp Pulse Pulse Resp BP BP Pulse Ox 04/14/22 12:28 84 16 144/66 H 100 04/14/22 11:42 36.9 C 74 16 124/66 99 O2 Del Method 04/14/22 12:28 Room Air 04/14/22 11:42 Room Air Laboratory Results Abnormal lab results 04/14/22 04/14/22 04/14/22 Range/Units 12:05 12:05 12:05 RBC 3.50 L (4.63-6.08) M/uL Hgb 9.0 L (14.0-18.0) g/dl Hct 28.5 L (40.1-51.0) % MCHC 31.6 L (32.0-36.0) g/dL RDW Coeff of Morgan 14.8 H (11.5-14.5) % Lymph # (Auto) 1.10 L (1.2-3.4) K/uL PT 21.7 H (9.0-12.0) Seconds INR 2.1 H (0.9-1.1) APTT 44.3 H (21.0-31.0) Seconds BUN 34 H (6-23) mg/dl BUN/Creatinine Ratio 25.8 H (10-20) Glucose 128 H (70-99(Fasting)) mg/dl POC Stool Occult Blood (Negative) 04/14/22 Range/Units 13:20 RBC (4.63-6.08) M/uL Hgb (14.0-18.0) g/dl Hct (40.1-51.0) % MCHC (32.0-36.0) g/dL RDW Coeff of Morgan (11.5-14.5) % Lymph # (Auto) (1.2-3.4) K/uL PT (9.0-12.0) Seconds INR (0.9-1.1) APTT (21.0-31.0) Seconds BUN (6-23) mg/dl BUN/Creatinine Ratio (10-20) Glucose (70-99(Fasting)) mg/dl POC Stool Occult Blood Positive A (Negative) Diagnostic Findings XR chest 1V portable CLINICAL HISTORY: shortness of breath on exertion TECHNIQUE: Single frontal radiograph of the chest was obtained. Comparison: Comparison is made to chest radiograph 10/20/2021 FINDINGS: No lines and tubes are seen. Cardiomegaly is noted. The lungs are clear. No evidence of pleural effusion or pneumothorax. IMPRESSION: Cardiomegaly without acute abnormality. In particular no evidence of pneumonia. Medications Administered ER Medications Given: Pantoprazole 80mg IV and drip 8mg/hr ECG Indication: other Rate (beats per minute): 71 Rhythm: atrial fibrillation Findings: no acute ischemic change Comparison ECG Date: from (October 18, 2021) Change: the following changes noted (ST no longer depressed in lateral leads) Code Status & VTE Plan Code Status Full VTE Prophylaxis Plan VTE Prophylaxis will be ordered: No Reason for no VTE drug order: Contraindicated Reason for no VTE mechanical prophylaxis: Treatment not indicated PG Care Time/CCT Total # of Minutes Spent Total Time Spent with Patient: Total time spent is greater than 50% in coordination of care (as documented) at patient's floor/unit and/or counseling patient: Coding Level of Care Code INT OBSERVATION CARE 50M LVL 2 Diagnoses Anemia D64.9 Acute GI bleeding K92.2 Permanent atrial fibrillation I48.21 (HFpEF) heart failure with preserved ejection fraction I50.30
[2022-04-14] MEDS ORDERED: PANTOprazole 40 MG in DEXTROSE 5% 100 ML IV SCH (13:45)
[2022-04-14 15:10] LABS: Reticulocyte % 1.7 % (0.5-2.0); Reticulocytes # 0.06 10^6/uL (0.02-0.10)
--- NOTE | 2022-04-14 16:39 | XRay Report ---
XR chest 1V portable CLINICAL HISTORY: shortness of breath on exertion TECHNIQUE: Single frontal radiograph of the chest was obtained. Comparison: Comparison is made to chest radiograph 10/20/2021 FINDINGS: No lines and tubes are seen. Cardiomegaly is noted. The lungs are clear. No evidence of pleural effus ion or pneumothorax. IMPRESSION: Cardiomegaly without acute abnormality. In particular no evidence of pneumonia. ACT 112: Negative or not required by law. Electronically signed by: Chandu Mijares M.D. 04/14/2022 4:37 PM
[2022-04-14 16:46] LABS: Vitamin B12 379 pg/ml (180-914)
[2022-04-14] MEDS ORDERED: ACETAMINOPHEN 325 MG TAB PO PRN (16:46)
[2022-04-14 16:47] LABS: Folate (Folic Acid) > 22.30 ng/ml (>5.38)
[2022-04-14] MEDS: PANTOprazole 40 MG in SYRINGE 0 ML IV SCH (20:33)
[2022-04-14] MEDS ORDERED: TAMSULOSIN HCL 0.4 MG CAP PO SCH (21:00)
[2022-04-14] MEDS ORDERED: ATORVASTATIN 40 MG TAB PO SCH (21:00)
[2022-04-14 21:05] LABS: Hematocrit (blood only) 29.9 % (40.1-51.0); Hemoglobin 9.4 g/dl (14.0-18.0)
--- NOTE | 2022-04-15 05:03 | Electrocardiogram Report ---
Test Reason : Blood Pressure : / mmHG Vent. Rate : 071 BPM Atrial Rate : 258 BPM P-R Int : 000 ms QRS Dur : 100 ms QT Int : 392 ms P-R-T Axes : 000 050 008 degrees QTc Int : 425 ms Atrial fibrillation with premature ventricular or aberrantly conducted complexes Possible Anterior infarct (cited on or before 18-OCT-2021) Abnormal ECG When compared with ECG of 18-OCT-2021 09:42, No significant change Confirmed by Gustavo Slaughter ([id number]) on 04/15/2022 5:03:17 AM Referred By: SELF Confirmed By:Gustavo Slaughter
[2022-04-15 08:09] LABS: Basophils # (auto) 0.06 K/uL (0-0.2); Basophils % (auto) 1.3 %; Eosinophils # (auto) 0.17 K/uL (0-0.50); Eosinophils % (auto) 3.6 %; Hematocrit (blood only) 26.1 % (40.1-51.0); Hemoglobin 8.2 g/dl (14.0-18.0); Immature Granulocytes # (auto) 0.01 K/uL (0.00-0.02); Immature Granulocytes % (auto) 0.2 %; Lymphocytes # (auto) 1.06 K/uL (1.2-3.4); Lymphocytes % (auto) 22.3 %; Mean Corpuscular Hemoglobin 25.5 pg (25.0-34.0); Mean Corpuscular Hgb Conc 31.4 g/dL (32.0-36.0); Mean Corpuscular Volume 81.1 fL (80.0-100.0); Mean Platelet Volume 9.3 fL (9.4-12.4); Monocytes # (auto) 0.42 K/uL (0.24-0.82); Monocytes % (auto) 8.8 %; Neutrophils # (auto) 3.03 K/uL (1.4-6.5); Neutrophils % (auto) 63.8 %; Platelet Count 179 K/uL (130-400); RDW Coefficient of Variation 14.7 % (11.5-14.5); RDW Standard Deviation 43.5 fL (36.4-46.3); Red Blood Count 3.22 M/uL (4.63-6.08); White Blood Count 4.75 K/ul (4.8-10.8)
[2022-04-15 08:31] LABS: BUN Creatinine Ratio 21.4 (10-20); Calcium 8.9 mg/dl (8.5-10.1); Creatinine Clr Calc Pharmacy 52.6 ml/min; Est GFR (Non-African American) 62.1 ml/min; Potassium 4.4 mmol/L (3.5-5.1)
[2022-04-15] MEDS: PANTOprazole 40 MG in SYRINGE 0 ML IV SCH (08:32)
[2022-04-15] MEDS ORDERED: SODIUM CHLORIDE 0.9% 250 ML IV PRN (08:46)
[2022-04-15] MEDS ORDERED: diphenhydrAMINE 50 MG/ML VIAL IV ONE (08:51)
[2022-04-15] MEDS ORDERED: ACETAMINOPHEN 325 MG TAB PO ONE (08:51)
[2022-04-15] MEDS ORDERED: CALCIUM 600MG + VIT D 400 IU TAB PO SCH (09:00)
[2022-04-15] MEDS ORDERED: METOPROLOL SUCC 50MG EXT REL TAB PO SCH (09:00)
[2022-04-15] MEDS ORDERED: MULTIVITAMIN TAB PO SCH (09:00)
[2022-04-15] MEDS ORDERED: LOSARTAN POTASSIUM 50 MG TAB PO SCH (09:00)
[2022-04-15] MEDS ORDERED: FUROSEMIDE 40 MG TAB PO SCH (09:00)
--- NOTE | 2022-04-15 10:53 | Gastrointestinal Consultation ---
Date of Consultation April 15, 2022 Assessment & Plan (1) Anemia: Patient being seen in call coverage for [facility]. -Continue to monitor H/H. -Continue to monitor for signs of overt/gross GI bleeding. -IV Protonix 40 mg BID is acceptable in the absence of overt bleeding. -If stable, would plan for EGD/colonoscopy on 04/18/22. Supervising Physician Co-Signing Physician Notes I personally evaluated the patient and agree with the findings as documented by Meghan Velázquez, KANA Exam: Constitutional: WD/WN, vitals as above General: EOM intact bilaterally Neck: normal visual inspection Respiratory: normal respiratory effort, lungs clear to auscultation Cardiovascular: RRR, no murmur, no edema Gastrointestinal: abdomennormal to inspection, nondistended, soft, nontender, no hepatosplenomegaly Musculoskeletal: no cyanosis, head normal to inspection Skin: no rashes, warm and dry Neurologic: moves all extremities Psychiatric: A and O x3, euthymic affect History of Present Illness Reason for Consultation: Anemia Attending Physician: Gadiel Haley DO History of Present Illness This consult is being performed in call coverage for [facility]. This patient's outpatient GI care will be continued by [facility]. Patient is a 81 yo male with PMH of permanent Atrial Fibrillation, anemia, colonic AVMs, DM2, hypercholesterolemia, & prostate cancer. He presented to the ED after reportedly being referred by his PCP for a drop in his hemoglobin. Per review of labs it appears he went from a hemoglobin of 9.4 to 8.9 in 9 days. He notes increasing fatigue and dyspnea with exertion for several weeks and some minor dizziness. He is anticoagulated on Pradaxa. He denies a history of heartburn or reflux. No EGD available in our [facility] system at present, but patient had a colonoscopy with his primary GI Dr. Chow in 2019 for anemia during which time he was noted to have rectal AVMs. Family history is pertinent for stomach cancer in his mother but reportedly she had non-Hodgkins Lymphoma. He does have a history of radiation in the past for his prostate cancer. His fecal occult blood was positive, however he is not experiencing any overt GI bleeding. No recent melena, hematemesis, or hematochezia. No OTC NSAID use. Allergies Allergy/AdvReac Type Severity Reaction Status Date / Time Penicillins Allergy Mild SWELLING Verified 04/05/22 14:10 Home Medications Medication Instructions Recorded Confirmed Type calcium carbonate 600 mg-vitamin 1 tab PO QAM 05/13/18 04/14/22 History D3 20 mcg (800 unit) chewable tablet (Caltrate 600 plus D) multivitamin 1 tab PO DAILY 03/07/19 04/14/22 History tamsulosin 0.4 mg capsule 0.4 mg PO QPM #30 caps 11/30/20 04/14/22 Rx dabigatran etexilate 150 mg capsule 150 mg PO BID #180 caps 11/01/21 04/14/22 Rx atorvastatin 40 mg tablet 40 mg PO HS #90 tabs 11/29/21 04/14/22 Rx furosemide 40 mg tablet 80 mg PO DAILY #180 tabs 12/14/21 04/14/22 Rx losartan 50 mg tablet 50 mg PO QAM #90 tabs 12/14/21 04/14/22 Rx metoprolol succinate 100 mg 150 mg PO DAILY #180 tabs 12/14/21 04/14/22 Rx tablet,extended release 24 hr Patient History Medical History (HFpEF) heart failure with preserved ejection fraction Atrial fibrillation follows with Dr. Longoria BPH (benign prostatic hyperplasia) History of colon polyps Hyperlipidemia Hypertension On anticoagulant therapy Osteoarthritis Osteopenia Permanent atrial fibrillation Prostate cancer 2013--radiation Rectal bleeding Type 2 diabetes mellitus Surgical History History of colonoscopy History of prostate biopsy malignant History of wisdom tooth extraction Family History Aunt Family history of diabetes mellitus Father Myocardial infarction Other No family history of adverse response to anesthesia Denies family history of Ovarian cancer Prostate cancer Breast cancer Lung cancer Colorectal cancer Stroke Social History Smoking Status: Unknown if ever smoked Age Started Using Tobacco: 17; Age Quit Using Tobacco: 27; packs per day: 1; Years Smoked: 10; Cigarettes Per Day: 20; Number of Years Since Quit: 52; Second Hand Exposure: No; Hx Alcohol Use: Yes Alcohol type: beer Alcohol Intake Frequency: 4 or More x per/Week Hx Substance Use: No Preferred Language: Luxembourger Communication Ability: Effective Visual Impairment: Limited Hearing Ability: Hard of Hearing Student Services Advisor Required: No Beliefs That Will Affect Care: None marital status: Current Living Situation: Spouse current occupational status: retired Feels Safe at Home: Yes Safety Concerns: Feels Safe At This Time Childhood Exposure to Second-Hand Smoke: No Physical Activity Frequency: Does not Exercise Assistive Devices: Other Assistive Devices Comment: Stair lifts Review of Systems Constitutional: no fever and no chills Respiratory: no cough and no dyspnea Cardiovascular: no chest pain Gastrointestinal: no abdominal pain, no coffee ground emesis, no hematemesis, no blood in stools and no melena Hematologic / Lymphatic: no unexplained weight loss Physical Exam Constitutional: well developed Respiratory: normal respiratory effort Cardiovascular: Rate/Rhythm: regular rate Gastrointestinal (Abdomen): normal bowel sounds, soft, nontender, no hepatosplenomegaly Musculoskeletal: Head/Neck/Chest: normocephalic Psychiatric: Orientation: alert and oriented x 3 Results & Data ([facility]) Vital Signs (Past 12 Hours) Vital Signs Temp Pulse Pulse Resp BP Pulse Ox O2 Del Method 04/15/22 07:49 36.5 C 70 16 152/74 H 96 Room Air 04/15/22 03:00 36.5 C 72 18 133/76 97 Room Air 04/15/22 00:28 84 PG Care Time/CCT Total # of Minutes Spent Total Time Spent with Patient: Total time spent is greater than 50% in coordination of care (as documented) at patient's floor/unit and/or counseling patient: Coding Level of Care Code 49505 Initial Inpt Care Lvl 3 Diagnoses Anemia D64.9
[2022-04-15] MEDS ORDERED: IRON SUCROSE 200 MG in 0.9 % SODIUM CHLORIDE 100 ML IV ONE (15:45)
--- NOTE | 2022-04-15 16:20 | Discharge Summary ---
Discharge Summary Date of Service April 15, 2022 Notes For Next Care Provider Medication Changes From Visit . Admission HPI Per Admitting Provider Brendan Longoria is a 81 year old male who presents to the ER as advised by his PCP due to abnormal lab tests. Reportedly sent in due to hemoglobin drop from 9.4 nine days ago to 8.9 yesterday. He reports some increasing fatigue and decreased exercise tolerance over the last 2 weeks. He also has noticed some orthostasis and presyncope but this occurred 2 weeks ago and is actually improving. He has continued to take Pradaxa during this time. He denies any nausea, vomiting, abdominal pain, change in bowels, constipation, diarrhea, melena or bright red blood in stool. No significant history of heartburn and never had an EGD. He reports his last colonoscopy was normal approximately 8-9 years ago [addendum: his last colonoscopy on file is in [address] Chow with a few non bleeding angioectasias treated with argon laser]. He does note a family history of stomach cancer with his mother although this may have been her non-hodgkins lymphoma. He has a personal history of prostate cancer treated with radiation. He currently takes Pradaxa for atrial fibrillation. No prior DVT or PE. In the ER his repeat hemoglobin has actually increased to 9.0. Fecal occult blood was positive and he was started on pantoprazole IV 80mg bolus and 8mg/hr drip. He was referred to medicine for admission and ongoing management of suspected GI bleed given need to go back on Pradaxa. Admission Exam Per Admitting Provider Constitutional: WD/WN, vitals as above Eyes: + anicteric sclerae; normal pupil size ENMT: external ear and nose normal, oropharynx normal Neck: trachea midline, no thyromegaly Respiratory: normal respiratory effort, lungs clear to auscultation Cardiovascular: Rate/Rhythm: regular rate and + irregularly irregular Heart Sounds: no murmur Extremities: normal capillary refill and + pedal edema (trace pre-tibial equal b/l); no calf tenderness Gastrointestinal (Abdomen): normal bowel sounds, soft, nontender, no hepatosplenomegaly Musculoskeletal: no cyanosis or clubbing, extremities motor strength 5/5 Skin: no rashes, warm and dry Neurologic: moves all extremities and awake; not confused Psychiatric: A+Ox3, euthymic affect Principal Dx & Hospital Course #1 = Principal Diagnosis (1) Acute GI bleeding: Patient is a 81 yo male with PMH of permanent afib, anemia, HFpEF, colonic AVMs, DM2, hypercholesterolemia, & prostate cancer presenting for drop in H&H outpatient. This is likely due to occult GI bleed. Pt opted to do EGD/Colonoscopy outpatient. (1) Acute GI bleeding: NPO after midnight (clear liquids) Consult gastroenterology to consider EGD +/- colonoscopy to assess for source to determine if patient can be restarted on his Pradaxa. Prior colonic angiectasias on colonoscopy in 2019. Appreciate GI recs (04/15/22): Pt would like to be discharged in lieu of remaining inpatient 3 days. Scheduling outpatient EGD/Colonoscopy: pending Received Iron sucrose 200 mg in NaCl 110 mls @ 220 mls/hr IV once one; 220 mls/hr Go home with your usual medications: Do not take anticoagulant (Pradaxa) for 14 days Adding 325 mg tablet (contains 36 mg elemental iron per tablet); Once every 3 days until EGD/Colonoscopy Take Pantoprazole 40 mg bid PO (2) Anemia Probable slow GI bleed (iron def. anemia). Possible contributing towards fatigue. Transferrin sats 8% - consider venofer transfusion if not needing blood Will also take labs for B12 and folate; normal Follow up with primary care in 1-2 weeks. (3) Permanent atrial fibrillation: Anticoagulation on hold due to GI bleed (14 days) Continue rate control with metoprolol succinate 150mg PO QAM (4) (HFpEF) heart failure with preserved ejection fraction: Appears euvolemic on exam. Held furosemide. Resume Furosemide on discharge 40 mg bid Discharge Exam GA: well appearing, no acute distress HEENT: mucous membranes moist Cardio: rhythm irregularly irregular, normal rate, no MRG Lungs: Bilaterally clear to ausc Abdominal: no pain to palpation, normoactive bowel sounds Ext: LE shins thickened skin but no swelling Updated Medication List Medication Instructions Recorded Confirmed Type calcium carbonate 600 mg-vitamin 1 tab PO QAM 05/13/18 04/14/22 History D3 20 mcg (800 unit) chewable tablet (Caltrate 600 plus D) multivitamin 1 tab PO DAILY 03/07/19 04/14/22 History tamsulosin 0.4 mg capsule 0.4 mg PO QPM #30 caps 11/30/20 04/14/22 Rx atorvastatin 40 mg tablet 40 mg PO HS #90 tabs 11/29/21 04/14/22 Rx furosemide 40 mg tablet 80 mg PO DAILY #180 tabs 12/14/21 04/14/22 Rx losartan 50 mg tablet 50 mg PO QAM #90 tabs 12/14/21 04/14/22 Rx metoprolol succinate 100 mg 150 mg PO DAILY #180 tabs 12/14/21 04/14/22 Rx tablet,extended release 24 hr pantoprazole 40 mg tablet,delayed 40 mg PO BID 1 month #60 tabs 04/15/22 Rx release Hospital Stay Data Consultations 04/14/22 14:04 ED Decision to Admit Stat 04/14/22 16:46 Consult Gastroenterology Routine Procedures Performed Operation Date: 04/18/22 16:30 <No data on this case meets the specified criteria> Discharge Instructions Given to Patient (Per Discharging Provider) Dear Brendan, You are asked to come to the hospital by your primary care doctor because of her concern for anemia, or a drop in your hemoglobin. You were admitted to the hospital for anemia that was thought to be due to a GI bleed, or occult bleeding in your GI tract. We obtained lab work which indicated that, while your hemoglobin was lower than normal and your baseline, you did not urgently require a blood transfusion. You received an infusion of intravenous iron to help you replenish your hemoglobin stores. You were also evaluated by our film splicer, who recommended an EGD/colonoscopy, or a video endoscopy of your upper and lower GI tract. As it was not urgent, you are offered the option of an inpatient evaluation on Monday or an outpatient evaluation in a couple of months. As you have opted to be evaluated on an outpatient basis, we feel that you are medically ready enough to be discharged home safely. We made the following changes to your medication list. Please pay attention and take these medications as instructed. You may take your other medications as previously instructed unless otherwise directed by your primary care physician. If you have any questions about your medications, please reach out to your primary care physician for more guidance. * We sent a prescription for drug called Protonix, or pantoprazole to your pharmacy. Please take Protonix 40 mg twice daily. * Due to your risk of bleeding, we recommend holding your dabigatran. Stop taking it for 14 days unless otherwise instructed by your primary care physician. You have an appointment with Dr. Arana, your primary care physician, on April 19, 2022 at 2:45 PM. Your doctor will determine if you should remain off of your anticoagulation medicine or if you should resume it at that time. You have an appointment with Meghan Velázquez of [facility] on May 02, 2022 at 1:40 PM. If you have not heard from their office in 2-3 business days after your discharge, you may call their outpatient clinic at [phone] with any questions about what to do before your appointment. In the meantime, you were admitted for evaluation of a presumed GI bleed. That means, that while you are at home, if you start to experience concerning symptoms, you should reach out to your primary care physician for an appointment or for further guidance. Do not hesitate to reach out to your PCP if you are unsure or unclear as to what you are experiencing. * Melena, or darker than usual stools. * Hematochezia, or bright red blood in your stools. * Progressively worsening fatigue or lethargy. * Dizziness, lightheadedness, or fainting. * Progressively worsening shortness of breath on exertion, or progressively worsening exercise tolerance. It has been a pleasure caring for you here at [facility]. If you have any questions or concerns about your stay, please call [phone]. Total Time Total Time Spent Total Time Spent (In Minutes): <30 Supervising Physician Co-Signing Physician Notes I personally examined the patient and verified all rodriguez points of history and exam, discussed case, and agree with decision making with A Elizabeth MS3 Feeling okay. Would like to go home given that scope cannot be done in short order as an inpatient. Definitely wants to have close outpatient follow-up. Called his former GI officenot able to be seen until probably May at the soonest given shortage of gastroenterologists. Vitals noted, in general he is awake and alert pleasant no distress. HEENT norm ocephalic atraumatic mucous membranes moist. Breathing unlabored no accessory muscle use good effort. Skin shows no rashes no pallor or icterus. Anemiaalmost certainly lower GI with AVM as culpritfor colonoscopy as soon as can be facilitated. Given iron deficiency, IV iron was given and we will have him take an oral iron supplement. Weekly CBC until after colonoscopy. Hold Pradaxa for nowrestart at direction of PCP. A. fibrate controlled, anticoagulation temporarily on hold due to GI bleeding as above. Discussed with patient certainly for stroke risk mitigation the plan will be to get him back on anticoagulation as soon as can be safely done.
--- NOTE | 2022-04-15 19:10 | Billing Data ---
Date of Service April 15, 2022 Coding Level of Care Code 19350 OBS Care - Discharge
[2022-04-16] MEDS ORDERED: FUROSEMIDE 40 MG TAB PO SCH (09:00)
[2022-04-17] MEDS ORDERED: LAVAGE SOLUTION 4000ML PO SCH (18:00)
== END 2022-04-15 18:34 | disposition home or self-care (01) ==
LOC: EDINP 11:23 → ED 11:23 → SUATTDRO 13:38 → EDINP 17:30 → 2W 18:21
DX: I50.9 Heart failure, unspecified; I48.21 Permanent atrial fibrillation; Z79.899 Other long term (current) drug therapy; D64.9 Anemia, unspecified; K92.2 Gastrointestinal hemorrhage, unspecified; Z88.0 Allergy status to penicillin